=== PATIENT | male | born 1975 | race Caucasian/White ===

== ENCOUNTER 2019-03-09 00:13 | Observation (INO) ==
[2019-03-09] MEDS ORDERED: 0.9 % Sodium Chloride 1,000 ML IVC ONE (00:34)
--- NOTE | 2019-03-09 00:35 | Emergency Department Note ---
Disposition Clinical Impression: Suicidal ideation Alcohol intoxication Qualifiers: Complication of substance-induced condition: uncomplicated Qualified Code(s): F10.920 - Alcohol use, unspecified with intoxication, uncomplicated Depression Qualifiers: Depression Type: unspecified Qualified Code(s): F32.9 - Major depressive disorder, single episode, unspecified Disposition: Admitted As Inpatient Condition: Good Forms: ED Satisfaction Letter Time of Disposition: 02:40 Psych HPI - General Chief Complaint: ED Psychiatric Symptoms Stated Complaint: SI, ETOH Time Seen by Provider: 03/09/19 00:21 Source: family Nursing Notes Reviewed: Yes Vital Signs Reviewed: Yes - History of Present Illness HPI Narrative: 43-year-old male with reported psychiatric history and alcohol abuse arrives by private vehicle accompanied by his brother with complaint of suicidal ideation. Patient states that "he will be here tomorrow". Brother mentions that it was patient's eye for him to come to the hospital. Patient states that he needs to be in a "mental cardenas". Patient Brother mention a history of mental illness and patient has been and one in the past. Patient states that he has not been taking his psychiatric medications since he lost his medical card. Patient does describe himself as a daily beer drinker. He denies any injury or trauma, HI, hallucinations, recent illness. - Related Data Home Medications Medication Instructions Recorded Confirmed Paroxetine [Paxil] 30 mg PO DAILY 07/18/17 07/18/17 Previous Rx's Medication Instructions Recorded Chlordiazepoxide [Librium] 10 mg PO TITR #9 capsule 04/25/16 Meloxicam 7.5 mg PO DAILY #10 tablet 07/18/17 predniSONE [PredniSONE] 40 mg PO DAILY #10 tablet 07/18/17 Allergies Allergy/AdvReac Type Severity Reaction Status Date / Time Amoxicillin Allergy Rash Verified 11/28/16 21:54 All systems ED: reviewed and negative except as stated. Review of Systems: As Per HPI Constitutional: Denies: fever ENT ED: Denies: throat pain Cardiovascular: Denies: chest pain Respiratory: Denies: dyspnea Gastrointestinal: Denies: abdominal pain, nausea, vomiting Musculoskeletal: Denies: back pain, arthralgia Integumentary: Denies: rash Neurological: Denies: weakness Psychiatric: Reports: as per HPI Hematological/Lymphatic: Denies: lymphadenopathy Allergic/Immunologic: Denies: facial swelling Past Medical History - Past Medical History Medical history: Reports: no medical history Surgical history: Reports: no surgical history Psychiatric history: Reports: anxiety, depression, PTSD - Social History Smoking Status: Current some day smoker Smokeless Tobacco Status: Yes Alcohol use: Reports: heavy, recent Drug use: Reports: none Physical Exam - General Limitations: no limitations General appearance: alert, appears intoxicated - Head Head exam: atraumatic, normocephalic - Eye Eye exam: Present: normal appearance, EOMI - ENT ENT exam: mucous membranes moist - Neck Neck exam: Present: full ROM - Chest Chest inspection: Present: symmetric chest wall rise - Respiratory Respiratory exam: Present: normal lung sounds bilaterally. Absent: respiratory distress, wheezes, stridor - Cardiovascular Cardiovascular exam: Present: regular rate, tachycardia - Extremities Exam Extremities exam: Present: full ROM - Back Exam Back exam: Present: full ROM - Neurological Exam Neurological exam: Present: alert - Psychiatric Psychiatric exam: Present: normal affect, depressed, suicidal ideation. Absent: homicidal ideation - Expanded Psychiatric Exam Expanded psych exam: Absent: auditory hallucinations, visual hallucinations - Skin Skin exam: Present: warm, dry, intact, normal color. Absent: rash, cyanosis, diaphoresis Course Course Narrative: 43-year-old male known history of depression and alcohol abuse presents with complaint of suicidal ideation, and apparent intoxication. Patient seen and examined. he is alert and cooperative answers questions appropriately. He does voice a plan to shoot himself in the head. He does describe himself as a daily drinker. His last drink was just prior to arrival. When asked, he does mention that he goes through withdrawals when not drinking however he states his last day when he did not drink was "11 years old". We will attempt to medically clear him for psychiatric evaluation, however I anticipate patient may need to be admitted to the hospitalist for evaluation due to intoxication before psychiatric evaluation.. We will have patient pink slipped. Workup initiated. - Reevaluation(s) Reevaluation #1: Patient's blood work unremarkable at his baseline. His blood alcohol concentration is 353. His vitals remain stable. He is resting comfortably in his exam room. Patient has endorsed suicidal ideation and is noncompliant with his psychiatric medications. I feel he would benefit from a psychiatric eval uation and social work consult. Patient does have history of daily alcohol use, with possible withdrawal symptoms. We will plan for admission for monitoring and eventual psychiatric evaluation. Patient was discussed with attending Dr. Maynard who also had face time with patient and agreed with workup and disposition. Patient was discussed with hospitalist Dr. Olivarez who agreed to accept patient. Time: 02:32 Vital Signs Temperature 97.7 F 03/09/19 00:23 Pulse Rate 122 03/09/19 00:23 Respiratory Rate 16 03/09/19 00:23 Blood Pressure 160/115 03/09/19 00:23 O2 Sat by Pulse Oximetry 95 03/09/19 00:23 Temperature 97.6 F 03/09/19 02:28 Pulse Rate 86 03/09/19 02:28 Respiratory Rate 16 03/09/19 02:28 Blood Pressure 121/81 03/09/19 02:28 O2 Sat by Pulse Oximetry 95 03/09/19 02:28 Oxygen Delivery Oxygen Delivery Room Air Psych - MDM Narrative Medical decision making narrative: Laboratory Tests 03/09/19 03/09/19 03/09/19 00:34 00:34 00:48 WBC 7.3 RBC 5.20 Hgb 17.1 H Hct 49.3 MCV 94.8 MCH 32.9 MCHC 34.7 RDW 12.6 Plt Count 285 MPV 9.5 Immature Gran % 0.3 Seg Neutrophils % 35.8 Lymphocytes % 49.5 Monocytes % 8.2 Eosinophils % 5.5 Basophils % 0.7 Neutrophils # 2.6 Lymphocytes # 3.6 Monocytes # 0.6 Eosinophils # 0.4 Basophils # 0.1 Sodium 141 Potassium 4.1 Chloride 101 Carbon Dioxide 28 BUN 6 Creatinine 0.95 Est GFR ( Amer) > 60 Est GFR (Non-Af Amer) > 60 BUN/Creatinine Ratio 6 Glucose 113 H Calculated Osmolality 290 Calcium 9.0 Urine Color Yellow Urine Clarity Clear Urine pH 6.0 Ur Specific [place] 1.009 L Urine Protein Negative Urine Glucose (UA) Normal Urine Ketones Negative Urine Blood Negative Urine Nitrite Negative Urine Bilirubin Negative Urine Urobilinogen Normal Ur Leukocyte Esterase Negative Salicylates < 2.5 L Urine Opiates Screen Ur Buprenorphine Scrn Acetaminophen < 10 L Ur Barbiturates Screen Ur Phencyclidine Scrn Ur Amphetamines Screen U Benzodiazepines Scrn Urine Cocaine Screen U Marijuana (THC) Screen Ur Drug Screen Interp Ethyl Alcohol 353 H 03/09/19 00:48 WBC RBC Hgb Hct MCV MCH MCHC RDW Plt Count MPV Immature Gran % Seg Neutrophils % Lymphocytes % Monocytes % Eosinophils % Basophils % Neutrophils # Lymphocytes # Monocytes # Eosinophils # Basophils # Sodium Potassium Chloride Carbon Dioxide BUN Creatinine Est GFR ( Amer) Est GFR (Non-Af Amer) BUN/Creatinine Ratio Glucose Calculated Osmolality Calcium Urine Color Urine Clarity Urine pH Ur Specific [place] Urine Protein Urine Glucose (UA) Urine Ketones Urine Blood Urine Nitrite Urine Bilirubin Urine Urobilinogen Ur Leukocyte Esterase Salicylates Urine Opiates Screen Negative Ur Buprenorphine Scrn Negative Acetaminophen Ur Barbiturates Screen Negative Ur Phencyclidine Scrn Negative Ur Amphetamines Screen Negative U Benzodiazepines Scrn Negative Urine Cocaine Screen Negative U Marijuana (THC) Screen Negative Ur Drug Screen Interp See Below Ethyl Alcohol - Lab Data Result diagrams: 03/09/19 00:34 03/09/19 00:34 Lab Results 03/09/19 03/09/19 03/09/19 Range/Units 00:34 00:34 00:48 WBC 7.3 (4.3-11.1) K/mcL RBC 5.20 (4.19-5.50) M/mcL Hgb 17.1 H (12.9-16.9) g/dL Hct 49.3 (37.5-50.1) % MCV 94.8 (83.0-100.0) fL MCH 32.9 (28.0-33.3) pg MCHC 34.7 (31.6-35.5) g/dL RDW 12.6 (11.5-14.5) % Plt Count 285 (140-400) K/mcL MPV 9.5 (9.4-12.4) fL Immature Gran % 0.3 (0-4) % Seg Neutrophils % 35.8 % Lymphocytes % 49.5 % Monocytes % 8.2 % Eosinophils % 5.5 % Basophils % 0.7 % Neutrophils # 2.6 (1.6-8.9) K/mcL Lymphocytes # 3.6 (0.6-4.6) K/mcL Monocytes # 0.6 (0.0-1.3) K/mcL Eosinophils # 0.4 (0.0-0.6) K/mcL Basophils # 0.1 (0.0-0.2) K/mcL Sodium 141 (136-145) mEq/L Potassium 4.1 (3.5-5.1) mEq/L Chloride 101 (98-107) mEq/L Carbon Dioxide 28 (23-29) mEq/L BUN 6 (6-20) mg/dL Creatinine 0.95 (0.70-1.30) mg/dL Est GFR ( Amer) > 60 (> 60) Est GFR (Non-Af Amer) > 60 (> 60) BUN/Creatinine Ratio 6 (6-26) Glucose 113 H (70-105) mg/dL Calculated Osmolality 290 (280-300) Calcium 9.0 (8.6-10.3) mg/dL Urine Color Yellow (Yellow) Urine Clarity Clear (Clear) Urine pH 6.0 (5.0-8.0) pH Units Ur Specific [place] 1.009 L (1.010-1.025) Urine Protein Negative (Neg-Trace) mg/dL Urine Glucose (UA) Normal (Normal) mg/dL Urine Ketones Negative (Negative) mg/dL Urine Blood Negative (Negative) Urine Nitrite Negative (Negative) Urine Bilirubin Negative (Negative) Urine Urobilinogen Normal (Normal) mg/dL Ur Leukocyte Esterase Negative (Negative) Salicylates < 2.5 L (15.0-30.0) mg/dL Urine Opiates Screen (Ffortt=092) ng/mL Ur Buprenorphine Scrn (Cutoff=5) ng/mL Acetaminophen < 10 L (10-20) mcg/mL Ur Barbiturates Screen (Rhveil=647) ng/mL Ur Phencyclidine Scrn (Cutoff=25) ng/mL Ur Amphetamines Screen (Gcwcnr=7343) ng/mL U Benzodiazepines Scrn (Jolwvq=436) ng/mL Urine Cocaine Screen (Cutoff= 300) ng/mL U Marijuana (THC) Screen (Cutoff = 50) ng/mL Ur Drug Screen Interp Ethyl Alcohol 353 H (Less than 10) mg/dL 03/09/19 Range/Units 00:48 WBC (4.3-11.1) K/mcL RBC (4.19-5.50) M/mcL Hgb (12.9-16.9) g/dL Hct (37.5-50.1) % MCV (83.0-100.0) fL MCH (28.0-33.3) pg MCHC (31.6-35.5) g/dL RDW (11.5-14.5) % Plt Count (140-400) K/mcL MPV (9.4-12.4) fL Immature Gran % (0-4) % Seg Neutrophils % % Lymphocytes % % Monocytes % % Eosinophils % % Basophils % % Neutrophils # (1.6-8.9) K/mcL Lymphocytes # (0.6-4.6) K/mcL Monocytes # (0.0-1.3) K/mcL Eosinophils # (0.0-0.6) K/mcL Basophils # (0.0-0.2) K/mcL Sodium (136-145) mEq/L Potassium (3.5-5.1) mEq/L Chloride (98-107) mEq/L Carbon Dioxide (23-29) mEq/L BUN (6-20) mg/dL Creatinine (0.70-1.30) mg/dL Est GFR ( Amer) (> 60) Est GFR (Non-Af Amer) (> 60) BUN/Creatinine Ratio (6-26) Glucose (70-105) mg/dL Calculated Osmolality (280-300) Calcium (8.6-10.3) mg/dL Urine Color (Yellow) Urine Clarity (Clear) Urine pH (5.0-8.0) pH Units Ur Specific [place] (1.010-1.025) Urine Protein (Neg-Trace) mg/dL Urine Glucose (UA) (Normal) mg/dL Urine Ketones (Negative) mg/dL Urine Blood (Negative) Urine Nitrite (Negative) Urine Bilirubin (Negative) Urine Urobilinogen (Normal) mg/dL Ur Leukocyte Esterase (Negative) Salicylates (15.0-30.0) mg/dL Urine Opiates Screen Negative (Eyioys=361) ng/mL Ur Buprenorphine Scrn Negative (Cutoff=5) ng/mL Acetaminophen (10-20) mcg/mL Ur Barbiturates Screen Negative (Horxfc=218) ng/mL Ur Phencyclidine Scrn Negative (Cutoff=25) ng/mL Ur Amphetamines Screen Negative (Hlzmss=4952) ng/mL U Benzodiazepines Scrn Negative (Tgmfjq=745) ng/mL Urine Cocaine Screen Negative (Cutoff= 300) ng/mL U Marijuana (THC) Screen Negative (Cutoff = 50) ng/mL Ur Drug Screen Interp See Below Ethyl Alcohol (Less than 10) mg/dL Psychiatric Medical Clearance - Medical Clearance Checklist Medical History: No Social History Section defined Current Vitals: Last Vital Signs Temp 97.6 F 03/09/19 02:28 Pulse 86 03/09/19 02:28 Resp 16 03/09/19 02:28 BP 121/81 03/09/19 02:28 Pulse Ox 95 03/09/19 02:28 Psychiatric Lab Panel: Drug Levels and Toxicity 03/09/19 03/09/19 00:34 00:48 Urine Opiates Screen Negative Acetaminophen < 10 L Ur Barbiturates Screen Negative Ur Phencyclidine Scrn Negative Ur Amphetamines Screen Negative U Benzodiazepines Scrn Negative Urine Cocaine Screen Negative U Marijuana (THC) Screen Negative Ethyl Alcohol 353 H Abnormal Labs: Abnormal lab results Hgb 17.1 g/dL (12.9-16.9) H 03/09/19 00:34 Glucose 113 mg/dL (70-105) H 03/09/19 00:34 Ur Specific [place] 1.009 (1.010-1.025) L 03/09/19 00:48 Salicylates < 2.5 mg/dL (15.0-30.0) L 03/09/19 00:34 Acetaminophen < 10 mcg/mL (10-20) L 03/09/19 00:34 Ethyl Alcohol 353 mg/dL (Less than 10) H 03/09/19 00:34 Statement of Medical Clearance: I have evaluated the patient, reviewed diagnostic information, and certify that the patient's medical condition is sufficiently stable that transfer to the psychiatric unit does not pose a significant risk of deterioration.
[2019-03-09 01:00] LABS: Bilirubin,Urine Negative (Negative); Blood,Urine Negative (Negative); Clarity,Urine Clear (Clear); Color,Urine Yellow (Yellow); Glucose,Urine (UA) Normal (Normal); Ketones,Urine Negative (Negative); Leukocyte Esterase,Urine Negative (Negative); Nitrite,Urine Negative (Negative); Protein,Urine Negative (Neg-Trace); Specific Gravity,Urine 1.009 (1.010-1.025); Urobilinogen,Urine Normal (Normal)
[2019-03-09 01:04] LABS: Basophils # 0.1 K/mcL (0.0-0.2); Basophils % 0.7 %; Eosinophils # 0.4 K/mcL (0.0-0.6); Eosinophils % 5.5 %; Hematocrit 49.3 % (37.5-50.1); Hemoglobin 17.1 g/dL (12.9-16.9); Immature Granulocytes % 0.3 % (0-4); Lymphocytes # 3.6 K/mcL (0.6-4.6); Lymphocytes % 49.5 %; Mean Corpuscular HGB Conc 34.7 g/dL (31.6-35.5); Mean Corpuscular Hemoglobin 32.9 pg (28.0-33.3); Mean Corpuscular Volume 94.8 fL (83.0-100.0); Mean Platelet Volume 9.5 fL (9.4-12.4); Monocytes # 0.6 K/mcL (0.0-1.3); Monocytes % 8.2 %; Neutrophils # 2.6 K/mcL (1.6-8.9); Platelet Count 285 K/mcL (140-400); Red Cell Distribution Width 12.6 % (11.5-14.5); Segmented Neutrophils % 35.8 %; White Blood Count 7.3 K/mcL (4.3-11.1)
[2019-03-09 01:10] LABS: Amphetamine Screen,Urine Negative ng/mL (Cutoff=1000); Barbiturate Screen,Urine Negative ng/mL (Cutoff=200); Benzodiazepines Screen,Urine Negative ng/mL (Cutoff=200); Cannabinoid Screen,Urine Negative ng/mL (Cutoff = 50); Cocaine Screen,Urine Negative ng/mL (Cutoff= 300); Opiate Screen,Urine Negative ng/mL (Cutoff=300); Phencyclidine Screen,Urine Negative ng/mL (Cutoff=25)
[2019-03-09] MEDS: Nicotine 14 MG PATCH.TD24 TD SCH (01:19)
[2019-03-09 01:25] LABS: Acetaminophen < 10 mcg/mL (10-20); BUN/Creatinine Ratio 6 (6-26); Blood Urea Nitrogen 6 mg/dL (6-20); Carbon Dioxide 28 mEq/L (23-29); Chloride 101 mEq/L (98-107); Ethanol 353 mg/dL (Less than 10); Glucose 113 mg/dL (70-105); Osmolality,Calculated 290 (280-300); Potassium 4.1 mEq/L (3.5-5.1); Salicylate < 2.5 mg/dL (15.0-30.0); Sodium 141 mEq/L (136-145); eGFR For African Americans > 60 (> 60); eGFR For Non-African Americans > 60 (> 60)
--- NOTE | 2019-03-09 02:35 | Emergency Department Note ---
Disposition Clinical Impression: Suicidal ideation Alcohol intoxication Qualifiers: Complication of substance-induced condition: uncomplicated Qualified Code(s): F10.920 - Alcohol use, unspecified with intoxication, uncomplicated Disposition: Admitted As Inpatient Condition: Fair Referrals: NONE,PCP [Primary Care Provider] - Forms: ED Satisfaction Letter Time of Disposition: 02:36 General Adult HPI - General Chief complaint: ED Psychiatric Symptoms Stated complaint: SI, ETOH Time Seen by Provider: 03/09/19 00:21 Source: family Nursing Notes Reviewed: Yes Vital Signs Reviewed: Yes - History of Present Illness Pain Scale: 0 - Related Data Home Medications Medication Instructions Recorded Confirmed Paroxetine [Paxil] 30 mg PO DAILY 07/18/17 07/18/17 Previous Rx's Medication Instructions Recorded Chlordiazepoxide [Librium] 10 mg PO TITR #9 capsule 04/25/16 Meloxicam 7.5 mg PO DAILY #10 tablet 07/18/17 predniSONE [PredniSONE] 40 mg PO DAILY #10 tablet 07/18/17 Allergies Allergy/AdvReac Type Severity Reaction Status Date / Time Amoxicillin Allergy Rash Verified 11/28/16 21:54 Past Medical History - Past Medical History Medical history: Reports: no medical history Surgical history: Reports: no surgical history Psychiatric history: Reports: anxiety, depression, PTSD - Social History Smoking Status: Current some day smoker Smokeless Tobacco Status: Yes Alcohol use: Reports: heavy, recent Drug use: Reports: none Physical Exam - General General appearance: alert, appears intoxicated Course Vital Signs Temperature 97.7 F 03/09/19 00:23 Pulse Rate 122 03/09/19 00:23 Respiratory Rate 16 03/09/19 00:23 Blood Pressure 160/115 03/09/19 00:23 O2 Sat by Pulse Oximetry 95 03/09/19 00:23 Temperature 97.6 F 03/09/19 02:28 Pulse Rate 86 03/09/19 02:28 Respiratory Rate 16 03/09/19 02:28 Blood Pressure 121/81 03/09/19 02:28 O2 Sat by Pulse Oximetry 95 03/09/19 02:28 Oxygen Delivery Oxygen Delivery Room Air Medical Decision Making - Lab Data Lab results reviewed: Yes I reviewed the patient's lab results. Result diagrams: 03/09/19 00:34 03/09/19 00:34 Lab Results 09/16/19 09/16/19 09/16/19 Range/Units 00:34 00:34 00:48 WBC 7.3 (4.3-11.1) K/mcL RBC 5.20 (4.19-5.50) M/mcL Hgb 17.1 H (12.9-16.9) g/dL Hct 49.3 (37.5-50.1) % MCV 94.8 (83.0-100.0) fL MCH 32.9 (28.0-33.3) pg MCHC 34.7 (31.6-35.5) g/dL RDW 12.6 (11.5-14.5) % Plt Count 285 (140-400) K/mcL MPV 9.5 (9.4-12.4) fL Immature Gran % 0.3 (0-4) % Seg Neutrophils % 35.8 % Lymphocytes % 49.5 % Monocytes % 8.2 % Eosinophils % 5.5 % Basophils % 0.7 % Neutrophils # 2.6 (1.6-8.9) K/mcL Lymphocytes # 3.6 (0.6-4.6) K/mcL Monocytes # 0.6 (0.0-1.3) K/mcL Eosinophils # 0.4 (0.0-0.6) K/mcL Basophils # 0.1 (0.0-0.2) K/mcL Sodium 141 (136-145) mEq/L Potassium 4.1 (3.5-5.1) mEq/L Chloride 101 (98-107) mEq/L Carbon Dioxide 28 (23-29) mEq/L BUN 6 (6-20) mg/dL Creatinine 0.95 (0.70-1.30) mg/dL Est GFR ( Amer) > 60 (> 60) Est GFR (Non-Af Amer) > 60 (> 60) BUN/Creatinine Ratio 6 (6-26) Glucose 113 H (70-105) mg/dL Calculated Osmolality 290 (280-300) Calcium 9.0 (8.6-10.3) mg/dL Urine Color Yellow (Yellow) Urine Clarity Clear (Clear) Urine pH 6.0 (5.0-8.0) pH Units Ur Specific [place] 1.009 L (1.010-1.025) Urine Protein Negative (Neg-Trace) mg/dL Urine Glucose (UA) Normal (Normal) mg/dL Urine Ketones Negative (Negative) mg/dL Urine Blood Negative (Negative) Urine Nitrite Negative (Negative) Urine Bilirubin Negative (Negative) Urine Urobilinogen Normal (Normal) mg/dL Ur Leukocyte Esterase Negative (Negative) Salicylates < 2.5 L (15.0-30.0) mg/dL Urine Opiates Screen (Vhoesm=735) ng/mL Ur Buprenorphine Scrn (Cutoff=5) ng/mL Acetaminophen < 10 L (10-20) mcg/mL Ur Barbiturates Screen (Ejgkee=957) ng/mL Ur Phencyclidine Scrn (Cutoff=25) ng/mL Ur Amphetamines Screen (Oceclp=0219) ng/mL U Benzodiazepines Scrn (Ldbhgh=162) ng/mL Urine Cocaine Screen (Cutoff= 300) ng/mL U Marijuana (THC) Screen (Cutoff = 50) ng/mL Ur Drug Screen Interp Ethyl Alcohol 353 H (Less than 10) mg/dL 03/09/19 Range/Units 00:48 WBC (4.3-11.1) K/mcL RBC (4.19-5.50) M/mcL Hgb (12.9-16.9) g/dL Hct (37.5-50.1) % MCV (83.0-100.0) fL MCH (28.0-33.3) pg MCHC (31.6-35.5) g/dL RDW (11.5-14.5) % Plt Count (140-400) K/mcL MPV (9.4-12.4) fL Immature Gran % (0-4) % Seg Neutrophils % % Lymphocytes % % Monocytes % % Eosinophils % % Basophils % % Neutrophils # (1.6-8.9) K/mcL Lymphocytes # (0.6-4.6) K/mcL Monocytes # (0.0-1.3) K/mcL Eosinophils # (0.0-0.6) K/mcL Basophils # (0.0-0.2) K/mcL Sodium (136-145) mEq/L Potassium (3.5-5.1) mEq/L Chloride (98-107) mEq/L Carbon Dioxide (23-29) mEq/L BUN (6-20) mg/dL Creatinine (0.70-1.30) mg/dL Est GFR ( Amer) (> 60) Est GFR (Non-Af Amer) (> 60) BUN/Creatinine Ratio (6-26) Glucose (70-105) mg/dL Calculated Osmolality (280-300) Calcium (8.6-10.3) mg/dL Urine Color (Yellow) Urine Clarity (Clear) Urine pH (5.0-8.0) pH Units Ur Specific [place] (1.010-1.025) Urine Protein (Neg-Trace) mg/dL Urine Glucose (UA) (Normal) mg/dL Urine Ketones (Negative) mg/dL Urine Blood (Negative) Urine Nitrite (Negative) Urine Bilirubin (Negative) Urine Urobilinogen (Normal) mg/dL Ur Leukocyte Esterase (Negative) Salicylates (15.0-30.0) mg/dL Urine Opiates Screen Negative (Dzqcbh=249) ng/mL Ur Buprenorphine Scrn Negative (Cutoff=5) ng/mL Acetaminophen (10-20) mcg/mL Ur Barbiturates Screen Negative (Niuvdb=410) ng/mL Ur Phencyclidine Scrn Negative (Cutoff=25) ng/mL Ur Amphetamines Screen Negative (Fyzlto=6615) ng/mL U Benzodiazepines Scrn Negative (Vmnnil=027) ng/mL Urine Cocaine Screen Negative (Cutoff= 300) ng/mL U Marijuana (THC) Screen Negative (Cutoff = 50) ng/mL Ur Drug Screen Interp See Below Ethyl Alcohol (Less than 10) mg/dL Attestation Statement - Attestation Attestation: I, Cruzito Maynard MD, personally evaluated this patient and discussed their management with the midlevel provicer, PAC/HOSPICE SPIRITUAL CARE COORDINATOR. I reviewed the midlevel provider's note and agree with the documented findings, medical decision making, and plan of care. 43-year-old male with history of alcoholism presents to the emergency department for suicidal ideation. Patient very intoxicated on arrival. On examination patient is a well-developed well-nourished male in no acute distress. Normal motor of alcohol. He responds to verbal stimuli. No cyanosis or diaphoresis. Breath sounds are clear and equal bilaterally. Heart regular with a mild tachycardia. Abdomen soft and nontender with normal bowel sounds. Labs reviewed. Alcohol 353. The hospitalist, Dr. Olivarez, was consulted and accepted admission of the patient.
[2019-03-09] MEDS ORDERED: *HR* Promethazine 25 MG/ML VIAL IVP PRN (04:14)
[2019-03-09] MEDS ORDERED: *HR* LORazepam 2 MG/ML VIAL IVP PRN ×2 (04:14)
--- NOTE | 2019-03-09 05:01 | Internal Med History&Physical ---
Date of Encounter: 03/09/19 Time of Encounter: 05:00 Internal Medicine - H&P: HPI Chief complaint: SI Admitted From: Home Plans for Post Hospital Care: Home History of present illness: Yordan Chaves is a 43 year old man who is an active alcoholic and reports having mood disorders who was brought to the emergency room tonight by his brother as he reported having suicidal ideation. He says he has been d rinking on a daily basis more than 30 cans of beer and his last use was before coming to the ER. He says he has been feeling depressed because of his life and is unhappy with himself so he expressed desires to harm himself. When I asked him what method he says he is unsure but he owns a gun and could use that. On arrival to the ER he was seen to be hemodynamically stable but notably intoxicated. Alcohol level was 353. Rest of labs were grossly within normal limits. He denies any hallucinations but does admit to undergoing severe withdrawal episodes. Vitals: Reviewed General: Well-developed white man lying in bed in NAD Skin: Warm and flushed. HEENT: Moist mucous membranes. No conjunctivae pallor. Neck: No lymphadenopathy. No JVD. No carotid bruits. No palpable thyroid. Chest: Normal thoracic expansion. Normal breath sounds. Clear to auscultation. Heart: Normal S1 & S2; rhythmic. No rubs or murmurs. Abdomen: Non-distended, soft and non-tender to palpation. No peritoneal reaction. Extremities: No clubbing, cyanosis or edema. No calf tenderness. Normal distal pulses. Neurological: Somnolent but arousable. Oriented to person, place and time. No focal deficits. Psych: Affect appropriate. Assessment/Plan 1. Alcohol intoxication: Currently stable but at risk of developing a severe withdrawal state. Will place on CIWA protocol. Aspiration/fall precautions. Put on standing chlorodiazepoxide for today to help attenuate his symptoms. Lorazepam as needed. Oral folate/thiamine. IV LR started. 2. Suicidal ideation: Likely complicated by his intoxicated state although he has an underlying mood disorder that predisposes him to this. He will have a sitter and psychiatric consultation placed. 3. Mood disorder: Not currently on any medications. Further assessment per psychiatry. 4. DVT prophylaxis: Antiembolic stockings. Past Med Surg Social Fam HX - Past Medical History Medical history: no medical history Additional medical history: ETOH abuse Psychiatric history: anxiety, depression, PTSD - Past Surgical History Surgical History: no surgical history Additional surgical history: throat surgery - Social History Smoking Status: Current some day smoker Smokeless Tobacco Status: Yes Alcohol use: heavy, recent Drug use: none - Family History Mother Hx Family Endocrine Disorder: Yes Internal Medicine - H&P: Meds No Known Home Drugs 03/09/19 [History] Allergy/AdvReac Type Severity Reaction Status Date / Time Amoxicillin Allergy Rash Verified 03/09/19 03:40 Penicillins Allergy Rash Verified 03/09/19 03:40 All Systems PM: A 10-system review of systems was performed and is negative for pertinent fin dings except as documented above in the HPI. - Constitutional Vitals: Temp Pulse Resp BP Pulse Ox 97.6 F 86 16 121/81 95 03/09/19 02:28 03/09/19 02:28 03/09/19 02:28 03/09/19 02:28 03/09/19 02:28 Exam: . Internal Med - H&P Results - Labs CBC & Chem 7: 03/09/19 00:34 03/09/19 00:34 Labs: Short CBC 03/09/19 Range/Units 00:34 WBC 7.3 (4.3-11.1) K/mcL Hgb 17.1 H (12.9-16.9) g/dL Hct 49.3 (37.5-50.1) % Plt Count 285 (140-400) K/mcL Neutrophils # 2.6 (1.6-8.9) K/mcL BMP 03/09/19 00:34 Sodium 141 Potassium 4.1 Chloride 101 Carbon Dioxide 28 BUN 6 Creatinine 0.95 Glucose 113 H Calcium 9.0 Urine 03/09/19 Range/Units 00:48 Urine Color Yellow (Yellow) Urine Clarity Clear (Clear) Urine pH 6.0 (5.0-8.0) pH Units Ur Specific [place] 1.009 L (1.010-1.025) Urine Protein Negative (Neg-Trace) mg/dL Urine Glucose (UA) Normal (Normal) mg/dL - Time Spent With Patient Total time spent is greater than 50% in coordination of care (as documented) at patient's floor/unit and/or counseling patient:
[2019-03-09] MEDS: Ringers Solution, Lactated 1,000 ML IVC SCH ×2 (05:19→13:13)
--- NOTE | 2019-03-09 08:17 | Consult Note ---
Date of Encounter: 03/09/19 Time of Encounter: 08:17 Assessment & Recommendation (1) Depression Current visit: Yes Status: Acute Assessment & Recommendation: Patient endorses a history of depression, which has worsened over the last several months. He endorses active suicidal ideation, and states that he came to the hospital because if he didn't, "something bad is going to happen". Recommendations: - Resume home medication of paxil at lower dose of 20mg. - Recommend admission to 1A once medically cleared. - Continue sitter and suicide precautions per primary team and unit protocol. Qualifiers: Depression Type: unspecified Qualified Code(s): F32.9 - Major depressive disorder, single episode, unspecified (2) Alcohol use disorder Current visit: Yes Status: Acute Assessment & Recommendation: - Continue management for acute alcohol withdrawal per [facility] protocol and primary team direction. History of Present Illness Requesting Physician: Karolina Josue MD Reason for consult: SI, EtOH abuse History of present illness: Mr. Chaves is a 43 year old male with a history of anxiety, depression, PTSD, and alcohol abuse who presented to the ED endorsing suicidal ideation. He endorsed having a plan to shoot himself, and though he does not own a gun, stated that he could easily obtain one. In the ED, patient was noted to have an elevated alcohol level, and reported drinking multiple beers on a daily basis. When asked how many, patient states "more than most people would be able to handle". He denies any use of illicit substances. Patient did endorse a history of alcohol withdrawal symptoms, and was subsequently admitted to the medical floor for management of that problem. On evaluation this morning, patient endorsed a history of depression, anxiety, and PTSD, with previous admission to 1A a few years ago (April 2016). He reports that medications have been of limited use in the past; however, he notes that a prior physician, Dr. Joseph, had him on medication therapy that helped greatly, and reports that he was able to stay sober for several weeks. On review of [facility] documentation, it appears that patient was prescribed paxil 10mg and valium 10mg Q8H PRN by that provider. Patient was most recently seen in the residency clinic in July of this year, where he was seen by myself; at that time, he reported taking paxil 40mg and hydroxyzine 25mg Q6H PRN with good effect. He reports that he has not taken medication in several months, as he lost his medical insurance, though he has recently had his insurance problems addressed. He endorses anhedonia and difficulty motivating himself to leave his home. He denies overt homicidal ideation; however, he states that when he gets mad, he wants to hurt someone, which is why he stays home and drinks, otherwise he is concerned that "something bad will happen", which also prompted him to come to the hospital. He states that he is no longer able to deal with these problems on his own and states that he wants help. He denies any visual or auditory hallucinations. CC: Karolina Josue MD Past Med Surg Social Fam HX - Past Medical History Medical history: no medical history - Past Psychiatric History Psychiatric history: Reports: anxiety, depression, PTSD, previous psychiatric hospitalization - Past Surgical History Surgical History: no surgical history - Social History Smoking Status: Current some day smoker Smokeless Tobacco Status: Yes Alcohol use: heavy, recent Drug use: none - Family History Mother Hx Family Endocrine Disorder: Yes Medications & Allergies No Known Home Drugs 03/09/19 [History] Allergy/AdvReac Type Severity Reaction Status Date / Time Amoxicillin Allergy Rash Verified 03/09/19 03:40 Penicillins Allergy Rash Verified 03/09/19 03:40 Review of Systems Constitutional: Denies: fever, chills, weakness, weight change Cardiovascular: Denies: chest pain, palpitations, dyspnea on exertion Respiratory: Denies: cough, dyspnea, wheezes Gastrointestinal: Denies: abdominal pain, nausea, vomiting, diarrhea, constipation Musculoskeletal: Denies: joint swelling, joint pain Integumentary: Denies: rash, lesions, pruritus Neurological: Denies: headache, weakness, numbness, memory loss Psychiatric: Reports: depression, anxiety, suicidal ideation, homicidal ideation, anhedonia, hopelessness. Denies: auditory hallucinations, visual hallucinations Hematologic/Lymphatic: Denies: easy bruising, lymphadenopathy Allergic/Immunologic: Denies: urticaria, itchy eyes Psychiatry Exam - Constitutional Vitals: Temp Pulse Resp BP Pulse Ox 97.9 F 72 18 119/84 95 03/09/19 05:14 03/09/19 05:14 03/09/19 05:14 03/09/19 05:14 03/09/19 05:14 General appearance: age & developmentally appropriate - Musculoskeletal Strength & Tone: normal for patient (grossly normal on observation) - Psychiatric Patient Orientation: Yes Person, Yes Time, Yes Place Level of alertness: Alert, Follows commands Behavior: calm, cooperative Psychomotor activity: Normal Eye Contact: Maintains Eye Contact Mood Description: Depressed Affect description: congruent with mood, full range Speech Volume: Normal Speech pattern: normal rate, normal rhythm, normal tone, fluent, spontaneous, appropriate Language & Vocabulary: consistent with education Thought Process: Linear, Goal Oriented Thought Content: Yes Suicidal ideation, No Homicidal ideation, No Overt delusions Perceptual Disturbances: No Reacting to internal stimuli, No Auditory hallucinations, No Visual hallucinations Attention Span Ability: Capable of Focused Attention Memory Description: Grossly Intact Patient Reliability: Questionable Historian Intelligence Estimate: Average Results - Drug Levels and Toxicology Drug Levels and Toxicology: Drug Levels and Toxicity 03/09/19 03/09/19 00:34 00:48 Urine Opiates Screen Negative Acetaminophen < 10 L Ur Barbiturates Screen Negative Ur Phencyclidine Scrn Negative Ur Amphetamines Screen Negative U Benzodiazepines Scrn Negative Urine Cocaine Screen Negative U Marijuana (THC) Screen Negative Ethyl Alcohol 353 H - Labs Labs: Laboratory Last Values WBC 7.3 K/mcL (4.3-11.1) 03/09/19 00:34 RBC 5.20 M/mcL (4.19-5.50) 03/09/19 00:34 Hgb 17.1 g/dL (12.9-16.9) H 03/09/19 00:34 Hct 49.3 % (37.5-50.1) 03/09/19 00:34 MCV 94.8 fL (83.0-100.0) 03/09/19 00:34 MCH 32.9 pg (28.0-33.3) 03/09/19 00:34 MCHC 34.7 g/dL (31.6-35.5) 03/09/19 00:34 RDW 12.6 % (11.5-14.5) 03/09/19 00:34 Plt Count 285 K/mcL (140-400) 03/09/19 00:34 MPV 9.5 fL (9.4-12.4) 03/09/19 00:34 Immature Gran % 0.3 % (0-4) 03/09/19 00:34 Seg Neutrophils % 35.8 % 03/09/19 00:34 Lymphocytes % 49.5 % 03/09/19 00:34 Monocytes % 8.2 % 03/09/19 00:34 Eosinophils % 5.5 % 03/09/19 00:34 Basophils % 0.7 % 03/09/19 00:34 Neutrophils # 2.6 K/mcL (1.6-8.9) 03/09/19 00:34 Lymphocytes # 3.6 K/mcL (0.6-4.6) 03/09/19 00:34 Monocytes # 0.6 K/mcL (0.0-1.3) 03/09/19 00:34 Eosinophils # 0.4 K/mcL (0.0-0.6) 03/09/19 00:34 Basophils # 0.1 K/mcL (0.0-0.2) 03/09/19 00:34 Sodium 141 mEq/L (136-145) 03/09/19 00:34 Potassium 4.1 mEq/L (3.5-5.1) 03/09/19 00:34 Chloride 101 mEq/L (98-107) 03/09/19 00:34 Carbon Dioxide 28 mEq/L (23-29) 03/09/19 00:34 BUN 6 mg/dL (6-20) 03/09/19 00:34 Creatinine 0.95 mg/dL (0.70-1.30) 03/09/19 00:34 Est GFR ( Amer) > 60 (> 60) 03/09/19 00:34 Est GFR (Non-Af Amer) > 60 (> 60) 03/09/19 00:34 BUN/Creatinine Ratio 6 (6-26) 03/09/19 00:34 Glucose 113 mg/dL (70-105) H 03/09/19 00:34 Calculated Osmolality 290 (280-300) 03/09/19 00:34 Calcium 9.0 mg/dL (8.6-10.3) 03/09/19 00:34 Urine Color Yellow (Yellow) 03/09/19 00:48 Urine Clarity Clear (Clear) 03/09/19 00:48 Urine pH 6.0 pH Units (5.0-8.0) 03/09/19 00:48 Ur Specific [place] 1.009 (1.010-1.025) L 03/09/19 00:48 Urine Protein Negative mg/dL (Neg-Trace) 03/09/19 00:48 Urine Glucose (UA) Normal mg/dL (Normal) 03/09/19 00:48 Urine Ketones Negative mg/dL (Negative) 03/09/19 00:48 Urine Blood Negative (Negative) 03/09/19 00:48 Urine Nitrite Negative (Negative) 03/09/19 00:48 Urine Bilirubin Negative (Negative) 03/09/19 00:48 Urine Urobilinogen Normal mg/dL (Normal) 03/09/19 00:48 Ur Leukocyte Esterase Negative (Negative) 03/09/19 00:48 Salicylates < 2.5 mg/dL (15.0-30.0) L 03/09/19 00:34 Urine Opiates Screen Negative ng/mL (Uljwdj=316) 03/09/19 00:48 Ur Buprenorphine Scrn Negative ng/mL (Cutoff=5) 03/09/19 00:48 Acetaminophen < 10 mcg/mL (10-20) L 03/09/19 00:34 Ur Barbiturates Screen Negative ng/mL (Jqiybw=824) 03/09/19 00:48 Ur Phencyclidine Scrn Negative ng/mL (Cutoff=25) 03/09/19 00:48 Ur Amphetamines Screen Negative ng/mL (Bgnnvl=8745) 03/09/19 00:48 U Benzodiazepines Scrn Negative ng/mL (Xzivoi=541) 03/09/19 00:48 Urine Cocaine Screen Negative ng/mL (Cutoff= 300) 03/09/19 00:48 U Marijuana (THC) Screen Negative ng/mL (Cutoff = 50) 03/09/19 00:48 Ur Drug Screen Interp See Below 03/09/19 00:48 Ethyl Alcohol 353 mg/dL (Less than 10) H 03/09/19 00:34 Consult Discharge Plan - Plan Referrals: NONE,PCP [Primary Care Provider] - - Attending Attestation I examined this patient and my medical decision-making was reviewed with the Resident Physician. I agree with the documented findings, disposition and treatment plan as described except to the extent set forth below. Patient continues to endorse suicidal ideations. He continues to appear dysphoric and uninterested. As such we will recommend he come down to 1A once he is medically stable and has been safely detoxed from alcohol. In the meantime he can be restarted on his Paxil 20 mg by mouth every morning.
[2019-03-09] MEDS: Folic Acid 1 MG TABLET PO SCH (08:45)
[2019-03-09] MEDS: Vitamin B Complex/Vit C/Vit E 1 EACH TABLET PO SCH (08:45)
[2019-03-09] MEDS: Thiamine (B-1) 100 MG TABLET PO SCH (08:45)
[2019-03-09] MEDS: Acetaminophen 325 MG TABLET PO PRN ×2 (11:38→19:49)
--- NOTE | 2019-03-09 12:34 | Internal Med Progress Note ---
Hospitalist Progress Note - Encounter Date of Encounter: 03/09/19 Time of Encounter: 12:32 - Subjective Interval History: Patient seen and examined. No acute events overnight. Patient still notes that "if he doesnt get help, he will do something bad". Per nursing, patient has not scored on CIWA. - Exam Vitals: Temp Pulse Resp BP Pulse Ox 98.2 F 106 20 126/81 95 03/09/19 10:56 03/09/19 10:56 03/09/19 10:56 03/09/19 10:56 03/09/19 10:56 Exam: GENERAL APPEARANCE: Well developed, well nourished, alert and cooperative, and appears to be in no acute distress. HEENT: Normocephalic/atraumatic, PERRLA. NECK: Supple, nontender without lymphadenopathy. CARDIOVASCULAR: Normal S1, S2; regular rate and rhythm; no murmurs. RESPIRATORY: Clear to auscultation bilaterally; no rales, rhonchi or wheezing. ABDOMEN: Soft, nondistended, nontender; bowel sounds present. MUSKULOSKELETAL: No limitations in range of motion. EXTREMITIES: No edema, clubbing. NEUROLOGICAL: No focal neurological deficits. SKIN: Skin normal color, texture and turgor with no lesions or eruptions. PSYCHIATRIC: anxious appearing - Assessment and Plan (1) Suicidal ideation Current Visit: Yes Status: Acute Assessment and Plan: Patient brought in by brother for "thoughts of hurting self" Patient still endorsing suicidal thoughts Plan: Psych consulted: sitter; transfer to when medically stable (2) Alcohol intoxication Current Visit: Yes Status: Acute Assessment and Plan: On admission, patient was notably intoxicated with EtOH of 353 Patient has been drinking approximately 30 beers per day with last drink right before admission Plan: CIWA: patient is a heavy drinking with recent abrupt cessation and high risk for withdrawal Scheduled chlordiazepoxide taper PRN ativan oral folate and thiamine IVF (3) Depression Current Visit: Yes Status: Acute Assessment and Plan: Patient has had long history of depression, anxiety and PTSD; Previously on paxil but stopped after his medical insurance lapsed Plan: Psych consulted: started on paxil; transfer to 1A (4) DVT prophylaxis Current Visit: No Status: Acute Assessment and Plan: anti-embolic stockings - Time Spent with Patient Total time spent is greater than 50% in coordination of care (as documented) at patient's floor/unit and/or counseling patient: 35 minutes Plan of Care Discussed with: patient Internal Medicine: Result - Labs CBC & Chem 7: 03/09/19 00:34 03/09/19 00:34 Labs: Short CBC 03/09/19 Range/Units 00:34 WBC 7.3 (4.3-11.1) K/mcL Hgb 17.1 H (12.9-16.9) g/dL Hct 49.3 (37.5-50.1) % Plt Count 285 (140-400) K/mcL Neutrophils # 2.6 (1.6-8.9) K/mcL BMP 03/09/19 00:34 Sodium 141 Potassium 4.1 Chloride 101 Carbon Dioxide 28 BUN 6 Creatinine 0.95 Glucose 113 H Calcium 9.0 Urine 03/09/19 Range/Units 00:48 Urine Color Yellow (Yellow) Urine Clarity Clear (Clear) Urine pH 6.0 (5.0-8.0) pH Units Ur Specific [place] 1.009 L (1.010-1.025) Urine Protein Negative (Neg-Trace) mg/dL Urine Glucose (UA) Normal (Normal) mg/dL Consult Discharge Plan - Plan Referrals: NONE,PCP [Primary Care Provider] - ____ (2) Alcohol intoxication Qualifiers: Complication of substance-induced condition: uncomplicated Qualified Code(s): F10.920 - Alcohol use, unspecified with intoxication, uncomplicated (3) Depression Qualifiers: Depression Type: unspecified Qualified Code(s): F32.9 - Major depressive disorder, single episode, unspecified
[2019-03-10] MEDS: Nicotine 14 MG PATCH.TD24 TD SCH (03:45)
--- NOTE | 2019-03-10 08:31 | Psychiatry Progress Note ---
Date of Encounter: 03/10/19 Time of Encounter: 08:31 Subjective Interval history: Mr. Chaves was seen and evaluated at the bedside this morning. He reports improvement in his withdrawal symptoms, though he continues to endorse generalized anxiety. He denies active suicidal or homicidal ideation at the time of exam, and reports that he feels that his mood somewhat improved today. Nursing staff reports no significant overnight events. Review of Systems Psychiatric: Reports: depression, anxiety, anhedonia, hopelessness, irritability. Denies: suicidal ideation, homicidal ideation, auditory hallucinations, visual hallucinations Results - Vital Signs Vital Signs: Temp Pulse Resp BP Pulse Ox 97.9 F 65 16 142/93 96 03/10/19 06:53 03/10/19 06:53 03/10/19 06:53 03/10/19 06:53 03/10/19 06:53 Assessment and Plan (1) Depression Current visit: Yes Status: Acute Additional Plan: Assessment & Recommendation: Patient endorses a history of depression, which has worsened over the last several months. He denies any suicidal ideation today, and reports some improvement in his mood secondary to librium for alcohol withdrawal. However, he does report feeling very anxious in general. He denies any homicidal ideation or hallucinations this morning. Recommendations: - Restart paroxetine 20mg daily. - Recommend admission to 1A once medically cleared. - Continue sitter and suicide precautions per primary team and unit protocol. Qualifiers: Depression Type: unspecified Qualified Code(s): F32.9 - Major depressive disorder, single episode, unspecified (2) Alcohol use disorder Current visit: Yes Status: Acute Additional Plan: Continue management for acute alcohol withdrawal per primary team direction. Consult Discharge Plan - Plan Referrals: NONE,PCP [Primary Care Provider] - - Attending Attestation I examined this patient and my medical decision-making was reviewed with the Resident Physician. I agree with the documented findings, disposition and treatment plan as described except to the extent set forth below. Continue to recommend restarting his Paxil 20 mg by mouth every morning and bring him to 1A once medically stable. Psychiatry Exam - Constitutional Vitals: Temp Pulse Resp BP Pulse Ox 97.9 F 65 16 142/93 96 03/10/19 06:53 03/10/19 06:53 03/10/19 06:53 03/10/19 06:53 03/10/19 06:53 General appearance: age & developmentally appropriate - Musculoskeletal Strength & Tone: normal for patient - Psychiatric Patient Orientation: Yes Person, Yes Time, Yes Place Level of alertness: Alert Behavior: calm, cooperative, restless Psychomotor activity: Normal Eye Contact: Minimal Contact Mood Description: Anxious Affect description: congruent with mood Speech Volume: Normal Speech pattern: normal rate, normal rhythm, normal tone, fluent, spontaneous Language & Vocabulary: consistent with education Thought Process: Logical, Linear Thought Content: No Suicidal ideation, No Homicidal ideation, No Overt delusions Perceptual Disturbances: No Reacting to internal stimuli, No Auditory hallucinations, No Visual hallucinations Attention Span Ability: Capable of Sustained Attention Patient Reliability: Questionable Historian
[2019-03-10] MEDS: Vitamin B Complex/Vit C/Vit E 1 EACH TABLET PO SCH (09:21)
[2019-03-10] MEDS: Acetaminophen 325 MG TABLET PO PRN ×2 (09:21→20:29)
[2019-03-10] MEDS: Thiamine (B-1) 100 MG TABLET PO SCH (09:21)
[2019-03-10] MEDS: Folic Acid 1 MG TABLET PO SCH (09:22)
[2019-03-10] MEDS ORDERED: Nicotine 14 MG PATCH.TD24 TD ONE (10:30)
[2019-03-10] MEDS ORDERED: *HR* LORazepam 2 MG/ML VIAL IVP PRN (10:34)
--- NOTE | 2019-03-10 15:38 | Internal Med Progress Note ---
Hospitalist Progress Note - Encounter Date of Encounter: 03/10/19 Time of Encounter: 15:36 - Subjective Interval History: Patient seen and examined. Per nursing, not scoring on CIWA. Patient has no acute complaints. Still feeling very anxious. - Exam Vitals: Temp Pulse Resp BP Pulse Ox 97.6 F 70 15 148/94 96 03/10/19 11:38 03/10/19 11:38 03/10/19 11:38 03/10/19 11:38 03/10/19 11:38 Exam: GENERAL APPEARANCE: Well developed, well nourished, alert and cooperative, and appears to be in no acute distress. HEENT: Normocephalic/atraumatic, PERRLA. NECK: Supple, nontender without lymphadenopathy. CARDIOVASCULAR: Normal S1, S2; regular rate and rhythm; no murmurs. RESPIRATORY: Clear to auscultation bilaterally; no rales, rhonchi or wheezing. ABDOMEN: Soft, nondistended, nontender; bowel sounds present. MUSKULOSKELETAL: No limitations in range of motion. EXTREMITIES: No edema, clubbing. NEUROLOGICAL: No focal neurological deficits. SKIN: Skin normal color, texture and turgor with no lesions or eruptions. PSYCHIATRIC: anxious appearing - Assessment and Plan (1) Suicidal ideation Current Visit: Yes Status: Acute Assessment and Plan: Patient brought in by brother for "thoughts of hurting self" Patient still endorsing suicidal thoughts Plan: Psych consulted: sitter; transfer to when medically stable (2) Alcohol intoxication Current Visit: Yes Status: Acute Assessment and Plan: On admission, patient was notably intoxicated with EtOH of 353 Patient has been drinking approximately 30 beers per day with last drink right before admission So far not scoring on CIWA but still early given amount of drinking Plan: CIWA: patient is a heavy drinking with recent abrupt cessation and high risk for withdrawal Scheduled chlordiazepoxide taper PRN ativan oral folate and thiamine IVF (3) Depression Current Visit: Yes Status: Acute Assessment and Plan: Patient has had long history of depression, anxiety and PTSD; Previously on paxil but stopped after his medical insurance lapsed Plan: Psych consulted: started on paxil; transfer to 1A (4) DVT prophylaxis Current Visit: No Status: Acute Assessment and Plan: anti-embolic stockings - Time Spent with Patient Total time spent is greater than 50% in coordination of care (as documented) at patient's floor/unit and/or counseling patient: 30 minutes Plan of Care Discussed with: patient Internal Medicine: Result - Labs CBC & Chem 7: 03/09/19 00:34 03/09/19 00:34 Consult Discharge Plan - Plan Referrals: NONE,PCP [Primary Care Provider] - (2) Alcohol intoxication Qualifiers: Complication of substance-induced condition: uncomplicated Qualified Code(s): F10.920 - Alcohol use, unspecified with intoxication, uncomplicated (3) Depression Qualifiers: Depression Type: unspecified Qualified Code(s): F32.9 - Major depressive disorder, single episode, unspecified
[2019-03-11 04:54] LABS: Hematocrit 46.3 % (37.5-50.1); Hemoglobin 15.7 g/dL (12.9-16.9); Mean Corpuscular HGB Conc 33.9 g/dL (31.6-35.5); Mean Corpuscular Hemoglobin 32.2 pg (28.0-33.3); Mean Corpuscular Volume 95.1 fL (83.0-100.0); Mean Platelet Volume 10.2 fL (9.4-12.4); Platelet Count 215 K/mcL (140-400); Red Blood Count 4.87 M/mcL (4.19-5.50); White Blood Count 5.6 K/mcL (4.3-11.1)
[2019-03-11 05:07] LABS: BUN/Creatinine Ratio 21 (6-26); Blood Urea Nitrogen 17 mg/dL (6-20); Calcium 8.8 mg/dL (8.6-10.3); Carbon Dioxide 24 mEq/L (23-29); Chloride 104 mEq/L (98-107); Glucose 104 mg/dL (70-105); Osmolality,Calculated 286 (280-300); Potassium 3.9 mEq/L (3.5-5.1); Sodium 137 mEq/L (136-145); eGFR For African Americans > 60 (> 60); eGFR For Non-African Americans > 60 (> 60)
[2019-03-11] MEDS: Vitamin B Complex/Vit C/Vit E 1 EACH TABLET PO SCH (08:55)
[2019-03-11] MEDS: Folic Acid 1 MG TABLET PO SCH (08:55)
[2019-03-11] MEDS: Thiamine (B-1) 100 MG TABLET PO SCH (08:55)
[2019-03-11] MEDS ORDERED: Nicotine 14 MG PATCH.TD24 TD SCH (09:00)
--- NOTE | 2019-03-11 12:57 | Discharge Summary ---
- NOTES TO OUTPATIENT PROVIDER Notes to Outpatient Provider: Inpatient for EtOH intoxication and SI; risk for wdwl so kept inpatient on fixed dose librium taper for 3 days prior to transfer to inpatient psych. Date of Encounter: 03/11/19 Time of Encounter: 12:53 Hospital course: Dear Doctors, I recently had the opportunity to care for this patient during their recent hospital stay at [facility]. Yordan Chaves is a 43 M w hx depression, EtOH use disorder, who presented at the time of admission drunk and with suicidal ideation. Due to recent heavy drinking, patient placed inpatient for observation and management of possible EtOH withdrawal. In the hospital, he was placed on fixed dose librium taper and did not require any breakthrough/PRN doses of ativan during his 3 days. He was evaluated by Psych who agreed that transfer to 1A inpatient psych at time of discharge was appropriate. Dx: EtOH use disorder, depression with suicidal ideation, high risk for alcohol withdrawal Pertinent tests/consults: Psych consult Follow up: transfer to (inpatient psych) Tests pending: none Med changes: - new librium 50 bid today, 25 bid tomorrow to finish taper - new multivitamin daily Mental status: awake, fully oriented Code status: Full It has been my pleasure participating in this patient's care. Please contact me with any questions or concerns regarding their hospital stay. Sincerely, Aniket Locke MD - Discharge Medications Prescriptions: New Chlordiazepoxide [Librium] 50 mg PO BID 1 Days #1 capsule Chlordiazepoxide [Librium] 25 mg PO BID 1 Days #2 capsule Multivitamin [One Daily] 1 each PO DAILY #30 tablet Home Medications: Chlordiazepoxide [Librium] 25 mg PO BID 1 Days #2 capsule 03/11/19 [Rx] Chlordiazepoxide [Librium] 50 mg PO BID 1 Days #1 capsule 03/11/19 [Rx] Multivitamin [One Daily] 1 each PO DAILY #30 tablet 03/11/19 [Rx] Allergies/Adverse Reactions: Allergy/AdvReac Type Severity Reaction Status Date / Time Amoxicillin Allergy Rash Verified 03/09/19 03:40 Penicillins Allergy Rash Verified 03/09/19 03:40 Date of admission: 03/09/19 04:30 Primary care physician: PCP NONE Consults: 09/16/19 04:17 Consult to Psychiatry [CONS] Routine Consulting Provider: Psychiatry Siria Reason consult: Sitter/1:1 03/09/19 05:06 Consult to [facility] [CONS] Routine Reason for SW Consult: SI - Constitutional Vitals: Temp Pulse Resp BP Pulse Ox 97.7 F 68 15 142/89 94 03/11/19 11:26 03/11/19 11:26 03/11/19 11:26 03/11/19 11:26 03/11/19 11:26 Exam: General: NAD, good eye contact, well appearing Thoracic: Normal breath sounds b/l, no wheezing or crackles Cardio: Normal S1 and S2, regular rate and rhythm, no murmurs Abdomen: Soft, nontender Extremities: Warm, well perfused. DP pulses 2+ b/l. No edema. Skin: Intact. No rashes, bruises, or ulcers Neuro: Awake, fully oriented. Speech fluent - Patient Status Disposition: Transfer Psychiatric Hosp Condition: Good Functional capacity at discharge: independent ambulation Overall status at discharge: patient is back to baseline - Discharge Instructions Follow Up With: NONE,PCP [Primary Care Provider] - - Diet and Activity Activity: resume usual activities as tolerated Diet: advance to your usual diet
[2019-03-11 15:34] VITALS: BP 129/90
== END 2019-03-11 16:11 | disposition home or self-care (01) ==
LOC: 3ANU 00:13 → EMEROOARM 00:13 → SUATTDRO 04:30 → 3ANU 04:45
PROVIDERS: ADMIT Internal Medicine; ATTEND Internal Medicine

== ENCOUNTER 2019-03-11 16:22 | Inpatient (IN) ==
[2019-03-11] MEDS ORDERED: Haloperidol Lactate 5 MG/ML VIAL IM PRN (16:25)
[2019-03-11] MEDS ORDERED: *HR* LORazepam 2 MG/ML VIAL IM PRN (16:25)
[2019-03-11] MEDS ORDERED: *HR* LORazepam 1 MG TABLET PO PRN (16:25)
[2019-03-11] MEDS ORDERED: MOM Conc 10 ML UD.LIQ PO PRN (16:25)
[2019-03-11] MEDS ORDERED: Mag Hydrox/Al Hydrox/Simeth 30 ML UDC PO PRN (16:25)
[2019-03-11] MEDS: Nicotine 2 MG GUM BC PRN (17:15)
[2019-03-11] MEDS: Ibuprofen 400 MG TABLET PO PRN (19:57)
[2019-03-11] MEDS: traZODone 50 MG TABLET PO PRN (21:27)
[2019-03-12] MEDS: Vitamin B Complex/Vit C/Vit E 1 EACH TABLET PO SCH (08:29)
[2019-03-12] MEDS: Folic Acid 1 MG TABLET PO SCH (08:29)
[2019-03-12] MEDS: Thiamine (B-1) 100 MG TABLET PO SCH (08:29)
[2019-03-12] MEDS: Multivit/Ca/Min/Fe/FA 1 TAB TABLET PO SCH (08:29)
--- NOTE | 2019-03-12 10:52 | Psychiatry History & Physical ---
Date of Encounter: 03/12/19 Time of Encounter: 10:52 History of Present Illness Patient Stated Chief Complaint: SI Medicare Admission Attestation: For traditional Medicare patients the provided hospital inpatient services are reasonable and necessary and in the case of services not specified as inpatient-only under 42 CFR 419.22 (n), that they are appropriately provided as inpatient services in accordance 42 CFR 412.3. For [facility] the patient may reasonably be expected to be discharged or transferred to a hospital within 96 hours after admission to the [facility]. History of Present Illness: Mr. Chaves is a 43 year old male with a history of anxiety, depression, PTSD, and alcohol abuse who presented to the ED endorsing suicidal ideation. He endorsed having a plan to shoot himself, and though he does not own a gun, stated that he could easily obtain one. In the ED, patient was noted to have an elevated alcohol level, and reported drinking multiple beers on a daily basis. When asked how many, patient states "more than most people would be able to handle". He denies any use of illicit substances. Patient did endorse a history of alcohol withdrawal symptoms, and was subsequently admitted to the medical floor for management of that problem, with consult placed to psychiatry by primary team. Patient noted to have previous admission to a few years ago (April 2016), at which time he was also struggling with depression and SI. He reports that medications have been of limited use in the past; however, he notes that a prior physician, Dr. Joseph, had him on medication therapy that helped greatly, and reports that he was able to stay sober for several weeks. On review of [facility] documentation, it appears that patient was prescribed paxil 10mg and valium 10mg Q8H PRN by that provider. Patient was most recently seen in the residency clinic in July of this year, where he was seen by myself; at that time, he reported taking paxil 40mg and hydroxyzine 25mg Q6H PRN with good effect. He reports that he has not taken medication in several months, as he lost his medical insurance, though he has recently had his insurance problems addressed. He endorses anhedonia and difficulty motivating himself to leave his home. He denies overt homicidal ideation; however, he reported that when he gets mad, he wants to hurt someone, which is why he stays home and drinks, otherwise he is concerned that "something bad will happen", which also prompted him to come to the hospital. He states that he is no longer able to deal with these problems on his own and states that he wants help. He denies any visual or auditory hallucinations. While on the medical floor, patient was restarted on paroxetine 20mg, with some improvement in his mood. On evaluation today, he denies any SI and voices interest in inpatient rehab facility for alcohol abuse after hospital discharge. Past Med Surg Social Fam HX - Past Medical History Medical history: no medical history - Past Surgical History Surgical History: no surgical history - Social History Smoking Status: Current some day smoker Smokeless Tobacco Status: Yes Alcohol use: heavy, recent Drug use: none - Family History Mother Name: Bailee Age: 64 Living Status: Still Living Hx Family Cardiac Disorders: No Hx Family Respiratory Disorders: No Hx Family Cancer: No Hx Family GI Disorders: No Hx Family Genitourinary Disorders: No Hx Family Endocrine Disorder: No Hx Family Musculoskeletal Disorders: No Hx Family Neuromuscular Disorders: No Hx Family Neurologic Disorders: No Hx Family HEENT Disorders: No Hx Family Autoimmune Disorders: No Hx Family Reproductive Disorders: No Hx Family Psychosocial Disorders: No Hx Family Medical Disorders: No Medications & Allergies Chlordiazepoxide [Librium] 25 mg PO BID 1 Days #2 capsule 03/11/19 [Rx] Chlordiazepoxide [Librium] 50 mg PO BID 1 Days #1 capsule 03/11/19 [Rx] Multivitamin [One Daily] 1 each PO DAILY #30 tablet 03/11/19 [Rx] Allergy/AdvReac Type Severity Reaction Status Date / Time Amoxicillin Allergy Rash Verified 03/09/19 03:40 Penicillins Allergy Rash Verified 03/09/19 03:40 Review of Systems Constitutional: Denies: fever, chills, weakness, weight change Eyes: Denies: eye pain, vision change Ears, Nose, Throat: Denies: ear pain, throat pain, dental pain, hearing loss, congestion Cardiovascular: Denies: chest pain, palpitations, dyspnea on exertion Respiratory: Denies: cough, dyspnea, wheezes Gastrointestinal: Denies: abdominal pain, nausea, vomiting, diarrhea, constipation Genitourinary male: Denies: urgency, dysuria, frequency, genital lesions Musculoskeletal: Denies: joint swelling, joint pain Integumentary: Denies: rash, lesions, pruritus Neurological: Denies: headache, weakness, numbness, memory loss Psychiatric: Reports: depression, anxiety, abnormal sleep pattern, anhedonia. Denies: suicidal ideation, homicidal ideation, auditory hallucinations, visual hallucinations Endocrine: Denies: fatigue, heat or cold intolerance Hematologic/Lymphatic: Denies: easy bruising, lymphadenopathy Allergic/Immunologic: Denies: urticaria, itchy eyes Exam - HEENT Head exam IM: Present: atraumatic Eye exam IM: Present: EOMI, normal appearance, PERRL ENT exam IM: Present: normal exam - Neurological Neurological exam: Present: CN II-XII intact (grossly intact on observation) - Respiratory Respiratory exam IM: Absent: accessory muscle use, respiratory distress - GI/Abdominal GI/Abdominal exam IM: Present: normal bowel sounds, soft. Absent: tenderness - Extremities Extremities exam IM: Present: full ROM - Skin Skin exam IM: Present: dry, warm - Constitutional Vitals: Temp Pulse Resp BP Pulse Ox 97.6 F 68 18 132/92 99 03/12/19 09:00 03/12/19 09:00 03/12/19 09:00 03/12/19 09:00 03/12/19 09:00 General appearance: age & developmentally appropriate, well-groomed, well- nourished - Musculoskeletal Gait: normal Station: relaxed Strength & Tone: normal for patient - Psychiatric Patient Orientation: Yes Person, Yes Time, Yes Place Level of alertness: Alert Behavior: calm, cooperative Psychomotor activity: Normal Eye Contact: Maintains Eye Contact Mood Description: Depressed (improved from previous) Affect description: congruent with mood Speech Volume: Normal Speech pattern: normal rate, normal rhythm, normal tone, fluent, spontaneous Language & Vocabulary: consistent with education Thought Process: Linear, Goal Oriented Thought Content: No Suicidal ideation, No Homicidal ideation, No Overt delusions Perceptual Disturbances: No Auditory hallucinations, No Visual hallucinations Attention Span Ability: Capable of Focused Attention Memory Description: Grossly Intact Patient Reliability: Questionable Historian Fund of knowledge: Yes abstraction ability, Yes average, Yes aware of current events Intelligence Estimate: Average Judgment: Limited Insight: Partial Assessment and Plan (1) Major depressive disorder Current visit: Yes Status: Acute Plan: Admit inpatient for safety and stabilization, Close observation, Suicide Precautions per unit protocol, Encourage participation in unit milieu, Group Therapy, Monitor sleep, Monitor appetite Additional Plan: Patient endorses a history of depression, which has worsened over the last several months. He initially voiced active suicidal ideation, stating that if he didn't, "something bad was going to happen", with endorsement of a plan to end his life. Paxil was restarted by primary team while admitted to the medical floor at lower dose of 20mg. On evaluation today, patient voices improvement in his mood, and denies active SI/HI. - Increase paroxetine from 20g to 40mg daily. Risks, benefits, side effects, alternatives discussed w/pt: Yes Patient agreeable to treatment: Yes Qualifiers: Major depression recurrence: recurrent Active/Remission status: currently active Major depression episode severity: severe Psychotic features: without psychotic features Qualified Code(s): F33.2 - Major depressive disorder, recurrent severe without psychotic features (2) PTSD (post-traumatic stress disorder) Current visit: Yes Status: Acute Plan: Close observation, Suicide Precautions per unit protocol, Encourage participation in unit milieu, Group Therapy, Monitor sleep, Monitor appetite, Family/Supportive other meeting Additional Plan: History of PTSD; will start prazosin for PTSD-associated nightmares. Risks, benefits, side effects, alternatives discussed w/pt: Yes Patient agreeable to treatment: Yes (3) Alcohol use disorder Current visit: Yes Status: Acute Plan: Close observation, Suicide Precautions per unit protocol, Encourage participation in unit milieu, Group Therapy, Monitor sleep, Monitor appetite Additional Plan: Alcohol withdrawal was managed on medical floor with a fixed-dose librium taper, and was provided with prescriptions to complete taper at time of discharge from the medical floor. At this time, patient is interested in an inpatient alcohol rehab facility; will plan to facilitate placement if possible. - Attending Attestation I examined this patient and my medical decision-making was reviewed with the Resident Physician. I agree with the documented findings, disposition and treatment plan as described except to the extent set forth below. Client is denying any further SI today but mood is significantly depressed. Lives alone. Drinks 30 plus beers daily. Has experienced alcohol withdrawal in the past but denies any history of DTs, seizures, or hallucinations. Wants AOD treatment. Open to the idea of inpatient AOD treatment at this time. Has had success with Paxil and Vistaril in the past so will titrate these medications for now. Also complaining of nightmares. Has a significant trauma history so discussed Prazosin as a potentially helpful medication and client would like to try it.
[2019-03-12] MEDS: Nicotine 2 MG GUM BC PRN ×3 (12:47→20:41)
[2019-03-12] MEDS: hydrOXYzine pamoate 25 MG CAPSULE PO PRN (17:54)
[2019-03-12] MEDS: hydrOXYzine pamoate 25 MG CAPSULE PO SCH (20:41)
[2019-03-12] MEDS: traZODone 50 MG TABLET PO PRN (20:41)
[2019-03-13] MEDS: Folic Acid 1 MG TABLET PO SCH (09:03)
[2019-03-13] MEDS: hydrOXYzine pamoate 25 MG CAPSULE PO SCH ×2 (09:03→21:00)
[2019-03-13] MEDS: Ibuprofen 400 MG TABLET PO PRN ×2 (09:04→21:06)
[2019-03-13] MEDS: Thiamine (B-1) 100 MG TABLET PO SCH (09:04)
[2019-03-13] MEDS: Vitamin B Complex/Vit C/Vit E 1 EACH TABLET PO SCH (09:04)
[2019-03-13] MEDS: Multivit/Ca/Min/Fe/FA 1 TAB TABLET PO SCH (09:04)
[2019-03-13] MEDS: Nicotine 2 MG GUM BC PRN ×3 (09:26→21:06)
--- NOTE | 2019-03-13 09:35 | Psychiatry Progress Note ---
Date of Encounter: 03/13/19 Time of Encounter: 09:32 Subjective Interval history: Client reports he is feeling better today. "Mellow." Denying any further SI, intent, or plan. Still willing to go to an inpatient rehab. Accepted by the [facility]. They will have a bed for him on Saturday. Will continue Librium taper over the weekend so client is off this medication by Saturday. Seems to be eating and sleeping well. States he could have eaten four breakfast trays this morning. Has been getting a lot of calories from alcohol so it is good that he is back to eating regular food. Not attending any groups. Encouraged to go but client has been resistant so far. Review of Systems Constitutional: Denies: fever, chills, weakness, weight change Eyes: Denies: eye pain, vision change Ears, Nose, Throat: Denies: ear pain, throat pain, dental pain, hearing loss, congestion Cardiovascular: Denies: chest pain, palpitations, dyspnea on exertion Respiratory: Denies: cough, dyspnea, wheezes Gastrointestinal: Denies: abdominal pain, nausea, vomiting, diarrhea, constipation Musculoskeletal: Denies: joint swelling, joint pain Neurological: Denies: headache, weakness, numbness, memory loss Psychiatric: Reports: depression, anxiety, abnormal sleep pattern, anhedonia. Denies: suicidal ideation, homicidal ideation, auditory hallucinations, visual hallucinations Results - Vital Signs Vital Signs: Temp Pulse Resp BP Pulse Ox 98.6 F 85 16 106/69 97 03/13/19 09:00 03/13/19 09:00 03/13/19 09:00 03/13/19 09:00 03/13/19 09:00 Assessment and Plan (1) Major depressive disorder Current visit: Yes Status: Acute Risks, benefits, side effects, alternatives discussed w/pt: Yes Patient agreeable to treatment: Yes Qualifiers: Major depression recurrence: recurrent Active/Remission status: currently active Major depression episode severity: severe Psychotic features: without psychotic features Qualified Code(s): F33.2 - Major depressive disorder, recurrent severe without psychotic features (2) PTSD (post-traumatic stress disorder) Current visit: Yes Status: Acute Risks, benefits, side effects, alternatives discussed w/pt: Yes Patient agreeable to treatment: Yes (3) Alcohol use disorder Current visit: Yes Status: Acute Consult Discharge Plan - Plan Referrals: NONE,PCP [Primary Care Provider] - Psychiatry Exam - Constitutional Vitals: Temp Pulse Resp BP Pulse Ox 98.6 F 85 16 106/69 97 03/13/19 09:00 03/13/19 09:00 03/13/19 09:00 03/13/19 09:00 03/13/19 09:00 General appearance: age & developmentally appropriate, well-groomed, well- nourished - Musculoskeletal Gait: slow Station: relaxed Strength & Tone: normal for patient - Psychiatric Patient Orientation: Yes Person, Yes Time, Yes Place Level of alertness: Alert Behavior: calm, cooperative Psychomotor activity: Slowed Eye Contact: Maintains Eye Contact Mood Description: Depressed Affect description: congruent with mood Speech Volume: Normal Speech pattern: normal rate, normal rhythm, normal tone, fluent, spontaneous Language & Vocabulary: consistent with education Thought Process: Linear, Goal Oriented Thought Content: No Suicidal ideation, No Homicidal ideation, No Overt delusions Perceptual Disturbances: No Auditory hallucinations, No Visual hallucinations Attention Span Ability: Capable of Focused Attention Memory Description: Grossly Intact Patient Reliability: Reliable Historian Fund of knowledge: Yes abstraction ability, Yes aware of current events Intelligence Estimate: Average Judgment: Limited Insight: Partial
[2019-03-13] MEDS: traZODone 50 MG TABLET PO PRN (21:00)
[2019-03-14] MEDS: Vitamin B Complex/Vit C/Vit E 1 EACH TABLET PO SCH (09:26)
[2019-03-14] MEDS: Thiamine (B-1) 100 MG TABLET PO SCH (09:26)
[2019-03-14] MEDS: Folic Acid 1 MG TABLET PO SCH (09:27)
[2019-03-14] MEDS: hydrOXYzine pamoate 25 MG CAPSULE PO SCH ×2 (09:27→20:21)
[2019-03-14] MEDS: Multivit/Ca/Min/Fe/FA 1 TAB TABLET PO SCH (09:27)
[2019-03-14] MEDS: Nicotine 2 MG GUM BC PRN ×5 (09:43→20:21)
--- NOTE | 2019-03-14 09:53 | Psychiatry Progress Note ---
Date of Encounter: 03/14/19 Time of Encounter: 09:49 Subjective Interval history: Client is doing better. Mood has improved. Denying any further SI, intent, or plan. Anxious about rehab. Asking a lot of questions about what he will need to bring and what the rules are. Nervous about being able to keep his home since he won't be earning an income in rehab. However, at this point, he remains committed to going to the [facility] and the plan is for them to take him on Saturday. Will continue to taper Librium so he is off this medication by Saturday. Prazosin seems to be helping and client reports good sleep last night. Eating well. Reports he is always hungry now. Was getting a lot of empty calories from alcohol that he is no longer getting so not surprised that he is feeling a lot of hunger. Doesn't really attend groups but he is pleasant and cooperative. Review of Systems Constitutional: Denies: fever, chills, weakness, weight change Eyes: Denies: eye pain, vision change Ears, Nose, Throat: Denies: ear pain, throat pain, dental pain, hearing loss, congestion Cardiovascular: Denies: chest pain, palpitations, dyspnea on exertion Respiratory: Denies: cough, dyspnea, wheezes Gastrointestinal: Denies: abdominal pain, nausea, vomiting, diarrhea, constipation Musculoskeletal: Denies: joint swelling, joint pain Neurological: Denies: headache, weakness, numbness, memory loss Psychiatric: Reports: depression, anxiety, abnormal sleep pattern, anhedonia. Denies: suicidal ideation, homicidal ideation, auditory hallucinations, visual hallucinations Results - Vital Signs Vital Signs: Temp Pulse Resp BP Pulse Ox 98.4 F 86 18 118/74 96 03/13/19 20:48 03/13/19 20:48 03/13/19 20:48 03/13/19 20:48 03/13/19 20:48 Assessment and Plan (1) Major depressive disorder Current visit: Yes Status: Acute Plan: Continue hospitalization, Close observation, Suicide Precautions per unit protocol, Encourage participation in unit milieu, Group Therapy, Monitor sleep, Monitor appetite Risks, benefits, side effects, alternatives discussed w/pt: Yes Patient agreeable to treatment: Yes Qualifiers: Major depression recurrence: recurrent Active/Remission status: currently active Major depression episode severity: severe Psychotic features: without psychotic features Qualified Code(s): F33.2 - Major depressive disorder, recurrent severe without psychotic features (2) PTSD (post-traumatic stress disorder) Current visit: Yes Status: Acute Plan: Continue hospitalization, Close observation, Suicide Precautions per unit protocol, Encourage participation in unit milieu, Group Therapy, Monitor sleep, Monitor appetite Risks, benefits, side effects, alternatives discussed w/pt: Yes Patient agreeable to treatment: Yes (3) Alcohol use disorder Current visit: Yes Status: Acute Plan: Continue hospitalization, Close observation, Suicide Precautions per unit protocol, Encourage participation in unit milieu, Group Therapy, Monitor sleep, Monitor appetite Risks, benefits, side effects, alternatives discussed w/pt: Yes Patient agreeable to treatment: Yes Consult Discharge Plan - Plan Referrals: NONE,PCP [Primary Care Provider] - Psychiatry Exam - Constitutional Vitals: Temp Pulse Resp BP Pulse Ox 98.4 F 86 18 118/74 96 03/13/19 20:48 03/13/19 20:48 03/13/19 20:48 03/13/19 20:48 03/13/19 20:48 General appearance: age & developmentally appropriate - Musculoskeletal Gait: normal Station: relaxed Strength & Tone: normal for patient - Psychiatric Patient Orientation: Yes Person, Yes Time, Yes Place Level of alertness: Alert Behavior: calm, cooperative Psychomotor activity: Increased Eye Contact: Maintains Eye Contact Mood Description: Anxious Affect description: congruent with mood Speech Volume: Normal Speech pattern: normal rate, normal rhythm, normal tone, fluent, spontaneous Language & Vocabulary: consistent with education Thought Process: Linear, Goal Oriented Thought Content: No Suicidal ideation, No Homicidal ideation, No Overt delusions Perceptual Disturbances: No Auditory hallucinations, No Visual hallucinations Attention Span Ability: Capable of Focused Attention Memory Description: Grossly Intact Patient Reliability: Reliable Historian Fund of knowledge: Yes abstraction ability, Yes aware of current events Intelligence Estimate: Average Judgment: Fair Insight: Partial
[2019-03-14] MEDS: hydrOXYzine pamoate 25 MG CAPSULE PO PRN (15:52)
[2019-03-14] MEDS: traZODone 50 MG TABLET PO PRN (20:21)
[2019-03-15] MEDS: Folic Acid 1 MG TABLET PO SCH (08:49)
[2019-03-15] MEDS: Vitamin B Complex/Vit C/Vit E 1 EACH TABLET PO SCH (08:51)
[2019-03-15] MEDS: hydrOXYzine pamoate 25 MG CAPSULE PO SCH ×2 (08:51→20:29)
[2019-03-15] MEDS: Thiamine (B-1) 100 MG TABLET PO SCH (08:51)
[2019-03-15] MEDS: Multivit/Ca/Min/Fe/FA 1 TAB TABLET PO SCH (08:51)
[2019-03-15] MEDS: Nicotine 2 MG GUM BC PRN ×4 (08:52→18:45)
--- NOTE | 2019-03-15 09:40 | Psychiatry Progress Note ---
Date of Encounter: 03/15/19 Time of Encounter: 09:35 Subjective Interval history: Client is doing well. Has good insight. Told staff his mother is upset he is here but client's impression is "she should be happy I'm here getting help." Appreciative toward staff for helping him. Nervous about going to the [facility] but continues to see it as a step in the right direction. Wants outpatient care beyond the [facility]. Has seen a provider via telepsych before and states he really needs a live person. Wants to have someone he can connect with and build a rapport with. At this point he seems committed to getting better. Even started attending groups here which he was very reluctant to do in the beginning. Staff report he participated well. Has been looking out for a female peer on the unit. She has been struggling with multiple issues and he has been keeping a helpful eye on her and alerting staff when she needs assistance. Eating and sleeping well. Pleasant and cooperative. Plan remains to discharge to the [facility] tomorrow. Review of Systems Constitutional: Denies: fever, chills, weakness, weight change Eyes: Denies: eye pain, vision change Ears, Nose, Throat: Denies: ear pain, throat pain, dental pain, hearing loss, congestion Cardiovascular: Denies: chest pain, palpitations, dyspnea on exertion Respiratory: Denies: cough, dyspnea, wheezes Gastrointestinal: Denies: abdominal pain, nausea, vomiting, diarrhea, constipation Musculoskeletal: Denies: joint swelling, joint pain Neurological: Denies: headache, weakness, numbness, memory loss Psychiatric: Reports: depression, anxiety, abnormal sleep pattern, anhedonia. Denies: suicidal ideation, homicidal ideation, auditory hallucinations, visual hallucinations Results - Vital Signs Vital Signs: Temp Pulse Resp BP Pulse Ox 98.4 F 81 18 130/67 97 03/14/19 20:04 03/14/19 20:04 03/14/19 20:04 03/14/19 20:04 03/14/19 20:04 Assessment and Plan (1) Major depressive disorder Current visit: Yes Status: Acute Plan: Continue hospitalization, Close observation, Suicide Precautions per unit protocol, Encourage participation in unit milieu, Group Therapy, Monitor sleep, Monitor appetite Risks, benefits, side effects, alternatives discussed w/pt: Yes Patient agreeable to treatment: Yes Qualifiers: Major depression recurrence: recurrent Active/Remission status: currently active Major depression episode severity: severe Psychotic features: without psychotic features Qualified Code(s): F33.2 - Major depressive disorder, recurrent severe without psychotic features (2) PTSD (post-traumatic stress disorder) Current visit: Yes Status: Acute Plan: Continue hospitalization, Close observation, Suicide Precautions per unit protocol, Encourage participation in unit milieu, Group Therapy, Monitor sleep, Monitor appetite Risks, benefits, side effects, alternatives discussed w/pt: Yes Patient agreeable to treatment: Yes (3) Alcohol use disorder Current visit: Yes Status: Acute Plan: Continue hospitalization, Close observation, Suicide Precautions per unit protocol, Encourage participation in unit milieu, Group Therapy, Monitor sleep, Monitor appetite Risks, benefits, side effects, alternatives discussed w/pt: Yes Patient agreeable to treatment: Yes Consult Discharge Plan - Plan Referrals: NONE,PCP [Primary Care Provider] - Psychiatry Exam - Constitutional Vitals: Temp Pulse Resp BP Pulse Ox 98.4 F 81 18 130/67 97 03/14/19 20:04 03/14/19 20:04 03/14/19 20:04 03/14/19 20:04 03/14/19 20:04 General appearance: age & developmentally appropriate, well-groomed, well-nouris hed - Musculoskeletal Gait: slow Station: relaxed Strength & Tone: normal for patient - Psychiatric Patient Orientation: Yes Person, Yes Time, Yes Place Level of alertness: Alert Behavior: calm, cooperative Psychomotor activity: Normal Eye Contact: Maintains Eye Contact Mood Description: Euthymic/stable Affect description: blunted Speech Volume: Normal Speech pattern: normal rate, normal rhythm, normal tone, fluent, spontaneous Language & Vocabulary: consistent with education Thought Process: Linear, Goal Oriented Thought Content: No Suicidal ideation, No Homicidal ideation, No Overt delusions Perceptual Disturbances: No Auditory hallucinations, No Visual hallucinations Attention Span Ability: Capable of Focused Attention Memory Description: Grossly Intact Patient Reliability: Reliable Historian Fund of knowledge: Yes abstraction ability, Yes aware of current events Intelligence Estimate: Average Judgment: Fair Insight: Partial
[2019-03-15] MEDS: hydrOXYzine pamoate 25 MG CAPSULE PO PRN (14:12)
[2019-03-15] MEDS: traZODone 50 MG TABLET PO PRN (20:29)
[2019-03-16] MEDS: Nicotine 2 MG GUM BC PRN ×5 (06:27→20:47)
[2019-03-16] MEDS: Multivit/Ca/Min/Fe/FA 1 TAB TABLET PO SCH (08:45)
[2019-03-16] MEDS: hydrOXYzine pamoate 25 MG CAPSULE PO SCH ×2 (08:45→20:45)
[2019-03-16] MEDS: Vitamin B Complex/Vit C/Vit E 1 EACH TABLET PO SCH (08:46)
[2019-03-16] MEDS: Thiamine (B-1) 100 MG TABLET PO SCH (08:47)
[2019-03-16] MEDS: Folic Acid 1 MG TABLET PO SCH (08:47)
[2019-03-16] MEDS: hydrOXYzine pamoate 25 MG CAPSULE PO PRN (14:09)
[2019-03-16] MEDS: Ibuprofen 400 MG TABLET PO PRN (14:09)
--- NOTE | 2019-03-16 15:53 | Psychiatry Progress Note ---
Date of Encounter: 03/16/19 Time of Encounter: 15:40 Subjective Interval history: Patient tells me today "I am alright". He denies any suicidal/homicidal ideation. He states that the medications help with his alcohol withdrawal and he denies any side effects from his Paxil. His mood is much more stable. His states his sleep is good, he eating is fine. He talks about his childhood trauma in his problems with sleep and how the medications have helped with his nightmares. He wants to discharged to an alcohol treatment center and continue to see a therapist dealing with his depression and trauma. He is concerned about losing his housing as he has not paid is lot rent for the month. I spoke to him about talking to the social work supervisor, as well as others at his inpatient rehab facility. They would make sure he had assistance in getting a check delivered that he would not lose his housing. He felt reassured by that. He is aware that he was not transferred today to his inpatient alcohol facility and that they should have room for him tomorrow, at which time he will be discharged to that facility. Review of Systems Psychiatric: Reports: depression, anxiety, abnormal sleep pattern, anhedonia. Denies: suicidal ideation, homicidal ideation, auditory hallucinations, visual hallucinations Results - Vital Signs Vital Signs: Temp Pulse Resp BP Pulse Ox 98.7 F 87 18 134/82 96 03/16/19 09:00 03/16/19 09:00 03/16/19 09:00 03/16/19 09:00 03/16/19 09:00 Assessment and Plan (1) Alcohol use disorder Current visit: Yes Status: Acute Plan: Other (Transfer to inpatient alcohol rehab facility at discharge) Risks, benefits, side effects, alternatives discussed w/pt: Yes Patient agreeable to treatment: Yes (2) PTSD (post-traumatic stress disorder) Current visit: Yes Status: Acute Plan: Continue hospitalization, Encourage participation in unit milieu Risks, benefits, side effects, alternatives discussed w/pt: Yes Patient agreeable to treatment: Yes (3) Major depressive disorder Current visit: Yes Status: Acute Plan: Continue hospitalization, Close observation, Suicide Precautions per unit protocol, Encourage participation in unit milieu, Group Therapy, Monitor sleep, Monitor appetite Risks, benefits, side effects, alternatives discussed w/pt: Yes Patient agreeable to treatment: Yes Qualifiers: Major depression recurrence: recurrent Active/Remission status: currently active Major depression episode severity: severe Psychotic features: without psychotic features Qualified Code(s): F33.2 - Major depressive disorder, recurrent severe without psychotic features Consult Discharge Plan - Plan Referrals: [facility] [Other] (You have indicated that you are interested in residential substance abuse treatment and have been referred to [facility] for further treatment. [facility] is a 36-bed residential drug treatment facility for men. You will be receiving both group and individual counseling services specific to the treatment of substance abuse. Along with substance abuse treatment, you will be receiving mental health and case management ser vices by Center staff. Medically assisted treatment via Naltrexone (Vivitrol) injections are available to interested individuals. He will be expected to participate in Recovery related activities including 12 step meetings, exercise and programs here towards a healthy lifestyle. A major focus at this program is the early development and adoption of positive behaviors to replace negative and maladaptive behaviors.) Janak Walker [Resident] - 03/17/19 3:00 pm (You have an appointment scheduled with this provider on Sunday, March 17, 2019 at 3:00 PM. Please keep all of your healthcare providers informed of any changes in your medications, treatments or medical conditions. Please contact the office at the number above at least 24 hours in advance if you are unable to keep this appointment. ) Psychiatry Exam - Constitutional Vitals: Temp Pulse Resp BP Pulse Ox 98.7 F 87 18 134/82 96 03/16/19 09:00 03/16/19 09:00 03/16/19 09:00 03/16/19 09:00 03/16/19 09:00 General appearance: age & developmentally appropriate, well-groomed - Musculoskeletal Gait: normal Station: slouched Strength & Tone: normal for patient - Psychiatric Patient Orientation: Yes Person, Yes Time, Yes Place, Yes Circumstance Level of alertness: Alert Behavior: anxious Psychomotor activity: Normal Eye Contact: Maintains Eye Contact Mood Description: Anxious Affect description: congruent with mood Speech Volume: Normal Speech pattern: normal rate, normal rhythm, normal tone, fluent Language & Vocabulary: consistent with education Thought Process: Intact, Goal Oriented Thought Content: Yes Intact Attention Span Ability: Capable of Focused Attention Memory Description: Grossly Intact Patient Reliability: Reliable Historian Fund of knowledge: Yes average Intelligence Estimate: Average Judgment: Fair Insight: Partial
[2019-03-16] MEDS: traZODone 50 MG TABLET PO PRN (20:45)
[2019-03-17] MEDS: Nicotine 2 MG GUM BC PRN (05:46)
[2019-03-17] MEDS: Folic Acid 1 MG TABLET PO SCH (08:03)
[2019-03-17] MEDS: hydrOXYzine pamoate 25 MG CAPSULE PO SCH (08:03)
[2019-03-17] MEDS: Ibuprofen 400 MG TABLET PO PRN (08:03)
[2019-03-17] MEDS: Multivit/Ca/Min/Fe/FA 1 TAB TABLET PO SCH (08:03)
[2019-03-17] MEDS: Thiamine (B-1) 100 MG TABLET PO SCH (08:04)
[2019-03-17] MEDS: Vitamin B Complex/Vit C/Vit E 1 EACH TABLET PO SCH (08:04)
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
[2019-03-17 09:23] VITALS: BP 116/81
== END 2019-03-17 09:40 | disposition home or self-care (01) | DRG 751 ==
LOC: 1ANU 16:22 → SUATTDRO 16:22
PROVIDERS: ADMIT Psychiatry & Neurology Psychiatry; ATTEND Psychiatry & Neurology Psychiatry

== ENCOUNTER 2019-09-02 15:14 | Observation (INO) ==
[2019-09-02 16:03] LABS: Basophils # 0.1 K/mcL (0.0-0.2); Basophils % 0.6 %; Eosinophils # 0.2 K/mcL (0.0-0.6); Eosinophils % 1.9 %; Hematocrit 48.5 % (37.5-50.1); Hemoglobin 16.3 g/dL (12.9-16.9); Immature Granulocytes % 0.5 % (0-4); Lymphocytes # 1.8 K/mcL (0.6-4.6); Lymphocytes % 21.2 %; Mean Corpuscular HGB Conc 33.6 g/dL (31.6-35.5); Mean Corpuscular Hemoglobin 31.8 pg (28.0-33.3); Mean Corpuscular Volume 94.7 fL (83.0-100.0); Mean Platelet Volume 9.6 fL (9.4-12.4); Monocytes # 0.4 K/mcL (0.0-1.3); Monocytes % 4.6 %; Neutrophils # 6.1 K/mcL (1.6-8.9); Platelet Count 249 K/mcL (140-400); Red Blood Count 5.12 M/mcL (4.19-5.50); Red Cell Distribution Width 13.2 % (11.5-14.5); Segmented Neutrophils % 71.2 %; White Blood Count 8.5 K/mcL (4.3-11.1)
[2019-09-02 16:09] LABS: Bilirubin,Urine Negative (Negative); Blood,Urine Negative (Negative); Clarity,Urine Clear (Clear); Color,Urine Yellow (Yellow); Glucose,Urine (UA) Normal (Normal); Ketones,Urine Negative (Negative); Leukocyte Esterase,Urine Negative (Negative); Nitrite,Urine Negative (Negative); Protein,Urine Negative (Neg-Trace); Specific Gravity,Urine 1.009 (1.010-1.025); Urobilinogen,Urine Normal (Normal)
[2019-09-02 16:15] LABS: Acetaminophen 11 mcg/mL (10-20); BUN/Creatinine Ratio 9 (6-26); Blood Urea Nitrogen 7 mg/dL (6-20); Calcium 9.4 mg/dL (8.6-10.3); Carbon Dioxide 25 mEq/L (23-29); Chloride 103 mEq/L (98-107); Ethanol 299 mg/dL (Less than 10); Glucose 99 mg/dL (70-105); Osmolality,Calculated 284 (280-300); Salicylate < 2.5 mg/dL (15.0-30.0); Sodium 138 mEq/L (136-145); eGFR For African Americans > 60 (> 60); eGFR For Non-African Americans > 60 (> 60)
[2019-09-02] MEDS ORDERED: Folic Acid 1 MG in 0.9 % Sodium Chloride 50 ML IVPB ONE (16:27)
[2019-09-02] MEDS ORDERED: Thiamine (B-1) 100 MG in 0.9 % Sodium Chloride 50 ML IVPB STA (16:27)
[2019-09-02 16:29] LABS: Amphetamine Screen,Urine Negative ng/mL (Cutoff=1000); Barbiturate Screen,Urine Negative ng/mL (Cutoff=200); Benzodiazepines Screen,Urine Negative ng/mL (Cutoff=200); Cannabinoid Screen,Urine Negative ng/mL (Cutoff = 50); Cocaine Screen,Urine Negative ng/mL (Cutoff= 300); Opiate Screen,Urine Negative ng/mL (Cutoff=300); Phencyclidine Screen,Urine Negative ng/mL (Cutoff=25)
[2019-09-02] MEDS ORDERED: Naloxone 0.4 MG/ML INJ IVP PRN (17:18)
[2019-09-02] MEDS ORDERED: *HR* LORazepam 2 MG/ML VIAL IVP PRN ×3 (17:19)
[2019-09-02] MEDS ORDERED: hydrOXYzine pamoate 25 MG CAPSULE PO PRN (17:52)
[2019-09-02] MEDS ORDERED: traZODone 50 MG TABLET PO PRN (17:52)
[2019-09-02] MEDS: Ondansetron 4 MG/2 ML VIAL IVP PRN (19:08)
[2019-09-02] MEDS: *HR* Heparin 5,000 UNIT/ML VIAL SQ SCH (22:30)
[2019-09-03 01:30] LABS: Basophils % 0.6 %; Immature Granulocytes % 0.2 % (0-4)
[2019-09-03 01:32] LABS: Eosinophils # 0.3 K/mcL (0.0-0.6); Eosinophils % 6.3 %; Hematocrit 41.8 % (37.5-50.1); Hemoglobin 14.2 g/dL (12.9-16.9); Immature Platelets 4.3 % (1.1-6.1); Lymphocytes % 47.7 %; Mean Corpuscular Hemoglobin 32.1 pg (28.0-33.3); Mean Corpuscular Volume 94.6 fL (83.0-100.0); Mean Platelet Volume 10.3 fL (9.4-12.4); Monocytes # 0.3 K/mcL (0.0-1.3); Neutrophils # 1.8 K/mcL (1.6-8.9); Platelet Count 209 K/mcL (140-400); Red Blood Count 4.42 M/mcL (4.19-5.50); Red Cell Distribution Width 13.2 % (11.5-14.5); Segmented Neutrophils % 38.2 %; White Blood Count 4.7 K/mcL (4.3-11.1)
[2019-09-03 01:36] LABS: BUN/Creatinine Ratio 9 (6-26); Blood Urea Nitrogen 9 mg/dL (6-20); Calcium 8.5 mg/dL (8.6-10.3); Carbon Dioxide 21 mEq/L (23-29); Chloride 107 mEq/L (98-107); Glucose 89 mg/dL (70-105); Osmolality,Calculated 288 (280-300); Potassium 3.5 mEq/L (3.5-5.1); Sodium 140 mEq/L (136-145); eGFR For African Americans > 60 (> 60); eGFR For Non-African Americans > 60 (> 60)
[2019-09-03 01:56] LABS: Lymphocytes # 2.2 K/mcL (0.6-4.6)
[2019-09-03] MEDS: *HR* Heparin 5,000 UNIT/ML VIAL SQ SCH ×2 (06:44→14:22)
[2019-09-03] MEDS: Ondansetron 4 MG/2 ML VIAL IVP PRN (08:11)
[2019-09-03] MEDS ORDERED: Thiamine (B-1) 100 MG TABLET PO SCH (09:00)
[2019-09-03] MEDS ORDERED: PARoxetine 20 MG TABLET PO SCH (09:00)
[2019-09-03] MEDS ORDERED: Multivit/Ca/Min/Fe/FA 1 TAB TABLET PO SCH (09:00)
[2019-09-03] MEDS ORDERED: Folic Acid 1 MG TABLET PO SCH (09:00)
[2019-09-03] MEDS ORDERED: Nicotine 21 MG PATCH.TD24 TD SCH (14:30)
[2019-09-03 15:20] VITALS: BP 130/90
== END 2019-09-03 18:06 ==
LOC: 3BNU 15:14 → EMEROOARM 15:14 → SUATTDRO 16:51 → 3BNU 17:20
PROVIDERS: ADMIT Internal Medicine; ATTEND Family Medicine

== ENCOUNTER 2020-10-06 15:14 | Inpatient (IN) ==
[2020-10-06 15:57] LABS: Bilirubin,Urine Negative (Negative); Blood,Urine Negative (Negative); Clarity,Urine Clear (Clear); Color,Urine Light-Yellow (Yellow); Glucose,Urine (UA) Normal (Normal); Ketones,Urine Negative (Negative); Leukocyte Esterase,Urine Negative (Negative); Nitrite,Urine Negative (Negative); Protein,Urine Negative (Neg-Trace); Specific Gravity,Urine 1.019 (1.010-1.025); Urobilinogen,Urine Normal (Normal)
[2020-10-06 15:57] LABS: Basophils % 0.5 %; Eosinophils # 0.2 K/mcL (0.0-0.6); Hematocrit 45.5 % (37.5-50.1); Hemoglobin 15.2 g/dL (12.9-16.9); Immature Granulocytes % 0.4 % (0-4); Lymphocytes # 2.1 K/mcL (0.6-4.6); Lymphocytes % 26.4 %; Mean Corpuscular HGB Conc 33.4 g/dL (31.6-35.5); Mean Corpuscular Hemoglobin 33.1 pg (28.0-33.3); Mean Corpuscular Volume 99.1 fL (83.0-100.0); Mean Platelet Volume 10.5 fL (9.4-12.4); Monocytes # 0.5 K/mcL (0.0-1.3); Monocytes % 6.5 %; Platelet Count 226 K/mcL (140-400); Red Blood Count 4.59 M/mcL (4.19-5.50); Red Cell Distribution Width 12.7 % (11.5-14.5); Segmented Neutrophils % 64.2 %; White Blood Count 7.8 K/mcL (4.3-11.1)
[2020-10-06 16:08] LABS: Amphetamine Screen,Urine Negative ng/mL (Cutoff=1000); Barbiturate Screen,Urine Negative ng/mL (Cutoff=200); Benzodiazepines Screen,Urine Negative ng/mL (Cutoff=200); Cannabinoid Screen,Urine Negative ng/mL (Cutoff = 50); Cocaine Screen,Urine Negative ng/mL (Cutoff= 300); Opiate Screen,Urine Negative ng/mL (Cutoff=300); Phencyclidine Screen,Urine Negative ng/mL (Cutoff=25)
[2020-10-06 16:09] LABS: Prothrombin Time 12.1 Seconds (9.4-12.1)
[2020-10-06 16:19] LABS: Acetaminophen < 10 mcg/mL (10-20); Alanine Aminotransferase 22 Units/L (7-52); Albumin 4.6 g/dL (3.5-5.7); Albumin/Globulin Ratio 1.5 (1.1-2.2); Alkaline Phosphatase 70 Units/L (34-104); Aspartate Amino Transferase 22 Units/L (13-39); BUN/Creatinine Ratio 11 (6-26); Bilirubin,Direct 0.1 mg/dL (0.0-0.2); Bilirubin,Indirect 0.4 mg/dL (0.0-1.0); Bilirubin,Total 0.5 mg/dL (0.3-1.0); Blood Urea Nitrogen 9 mg/dL (6-20); Calcium 9.2 mg/dL (8.6-10.3); Carbon Dioxide 27 mEq/L (23-29); Chloride 103 mEq/L (98-107); Ethanol < 10 mg/dL (Less than 10); Globulin 3.1 g/dL (2.4-3.5); Glucose 94 mg/dL (70-105); Osmolality,Calculated 284 (280-300); Potassium 3.6 mEq/L (3.5-5.1); Salicylate < 2.5 mg/dL (15.0-30.0); Sodium 138 mEq/L (136-145); Total Protein 7.7 g/dL (6.4-8.9); eGFR For African Americans > 60 (> 60); eGFR For Non-African Americans > 60 (> 60)
[2020-10-06 16:31] LABS: Thyroid Stimulating Hormone 2.734 mcIU/mL (0.340-5.600)
[2020-10-06] MEDS ORDERED: MOM Conc 10 ML UD.LIQ PO PRN (18:29)
[2020-10-06] MEDS ORDERED: *HR* LORazepam 2 MG/ML VIAL IM PRN (18:29)
[2020-10-06] MEDS ORDERED: Acetaminophen 325 MG TABLET PO PRN (18:29)
[2020-10-06] MEDS ORDERED: *HR* LORazepam 1 MG TABLET PO PRN (18:29)
[2020-10-06] MEDS ORDERED: Mag Hydrox/Al Hydrox/Simeth 30 ML UDC PO PRN (18:29)
[2020-10-06] MEDS ORDERED: traZODone 50 MG TABLET PO PRN (18:29)
[2020-10-06] MEDS ORDERED: haloperidoL 5 MG TABLET PO PRN (18:29)
[2020-10-06] MEDS ORDERED: Haloperidol Lactate 5 MG/ML VIAL IM PRN (18:29)
[2020-10-06] MEDS: hydrOXYzine pamoate 25 MG CAPSULE PO PRN (21:31)
[2020-10-06] MEDS: Nicotine 2 MG GUM BC PRN (21:31)
[2020-10-07] MEDS: Nicotine 2 MG GUM BC PRN ×2 (09:52→16:13)
[2020-10-07] MEDS: hydrOXYzine pamoate 25 MG CAPSULE PO PRN ×2 (10:38→21:50)
[2020-10-07] MEDS: QUEtiapine Fumarate 25 MG TABLET PO SCH ×2 (11:12→21:50)
[2020-10-08] MEDS: Nicotine 2 MG GUM BC PRN ×4 (06:13→21:59)
[2020-10-08] MEDS: QUEtiapine Fumarate 25 MG TABLET PO SCH ×2 (08:09→21:53)
[2020-10-08] MEDS ORDERED: QUEtiapine Fumarate 25 MG TABLET PO PRN (10:08)
[2020-10-08] MEDS: hydrOXYzine pamoate 25 MG CAPSULE PO PRN (13:51)
[2020-10-08] MEDS: Melatonin 3 MG TABLET PO SCH (21:52)
[2020-10-09] MEDS: Nicotine 2 MG GUM BC PRN ×5 (06:03→20:42)
[2020-10-09] MEDS: QUEtiapine Fumarate 25 MG TABLET PO SCH ×2 (08:09→21:52)
[2020-10-09] MEDS: hydrOXYzine pamoate 25 MG CAPSULE PO PRN ×3 (10:51→21:51)
[2020-10-09] MEDS: Melatonin 3 MG TABLET PO SCH (21:51)
[2020-10-10] MEDS: Nicotine 2 MG GUM BC PRN ×5 (06:59→20:34)
[2020-10-10] MEDS: QUEtiapine Fumarate 25 MG TABLET PO SCH ×2 (08:58→21:32)
[2020-10-10] MEDS: hydrOXYzine pamoate 25 MG CAPSULE PO PRN ×3 (13:13→21:36)
[2020-10-10] MEDS: Melatonin 3 MG TABLET PO SCH (21:31)
[2020-10-11] MEDS: Nicotine 2 MG GUM BC PRN ×3 (06:25→13:02)
[2020-10-11] MEDS: QUEtiapine Fumarate 25 MG TABLET PO SCH (08:44)
[2020-10-11 09:10] VITALS: BP 108/70
[2020-10-11] MEDS: hydrOXYzine pamoate 25 MG CAPSULE PO PRN (13:02)
== END 2020-10-11 13:15 | disposition other institution (70) | DRG 751 ==
LOC: EMEROOARM 15:14 → 1ANU 18:10
PROVIDERS: ADMIT Psychiatry & Neurology Psychiatry; ATTEND Psychiatry & Neurology Psychiatry

== ENCOUNTER 2022-01-26 12:43 | Observation (INO) ==
[2022-01-26 13:23] LABS: Basophils # 0.1 K/mcL (0.0-0.2); Basophils % 1.4 %; Eosinophils # 0.6 K/mcL (0.0-0.6); Eosinophils % 9.9 %; Hematocrit 46.7 % (37.5-50.1); Hemoglobin 15.8 g/dL (12.9-16.9); Immature Granulocytes % 0.3 % (0-4); Lymphocytes # 2.8 K/mcL (0.6-4.6); Lymphocytes % 44.4 %; Mean Corpuscular HGB Conc 33.8 g/dL (31.6-35.5); Mean Corpuscular Hemoglobin 33.4 pg (28.0-33.3); Mean Corpuscular Volume 98.7 fL (83.0-100.0); Mean Platelet Volume 9.8 fL (9.4-12.4); Monocytes # 0.4 K/mcL (0.0-1.3); Monocytes % 5.6 %; Neutrophils # 2.5 K/mcL (1.6-8.9); Platelet Count 286 K/mcL (140-400); Red Blood Count 4.73 M/mcL (4.19-5.50); Red Cell Distribution Width 12.9 % (11.5-14.5); Segmented Neutrophils % 38.4 %; White Blood Count 6.4 K/mcL (4.3-11.1)
[2022-01-26 13:44] LABS: Estimated Average Glucose 108 mg/dl; Hemoglobin A1C 5.4 %
[2022-01-26 13:47] LABS: Acetaminophen < 10 mcg/mL (10-20); BUN/Creatinine Ratio 6 (6-26); Blood Urea Nitrogen 6 mg/dL (6-20); Calcium 8.7 mg/dL (8.6-10.3); Carbon Dioxide 29 mEq/L (23-29); Chloride 109 mEq/L (98-107); Chol/HDL Ratio 2.2 (0-4.9); Cholesterol 157 mg/dL (< 200); Ethanol 315 mg/dL (Less than 10); Glucose 91 mg/dL (70-105); HDL Cholesterol 72 mg/dL (40-59); LDL Cholesterol,Calculated 49 mg/dL (< 100); Osmolality,Calculated 297 (280-300); Potassium 3.5 mEq/L (3.5-5.1); Salicylate < 2.5 mg/dL (15.0-30.0); Sodium 145 mEq/L (136-145); Triglycerides 181 mg/dL (< 150); eGFR For African Americans > 60 (> 60); eGFR For Non-African Americans > 60 (> 60)
[2022-01-26 14:42] LABS: Bilirubin,Urine Negative (Negative); Blood,Urine Negative (Negative); Clarity,Urine Clear (Clear); Color,Urine Yellow (Yellow); Glucose,Urine (UA) Normal (Normal); Ketones,Urine Negative (Negative); Leukocyte Esterase,Urine Negative (Negative); Nitrite,Urine Negative (Negative); Protein,Urine Trace mg/dL (Neg-Trace); Specific Gravity,Urine 1.018 (1.010-1.025); Urobilinogen,Urine Normal (Normal)
[2022-01-26 15:00] LABS: Amphetamine Screen,Urine Negative ng/mL (Cutoff=1000); Barbiturate Screen,Urine Negative ng/mL (Cutoff=200); Benzodiazepines Screen,Urine Positive ng/mL (Cutoff=200); Cannabinoid Screen,Urine Negative ng/mL (Cutoff = 50); Cocaine Screen,Urine Negative ng/mL (Cutoff= 300); Opiate Screen,Urine Negative ng/mL (Cutoff=300); Phencyclidine Screen,Urine Negative ng/mL (Cutoff=25)
[2022-01-27] MEDS ORDERED: Naloxone 0.4 MG/ML INJ IVP PRN (04:11)
[2022-01-27] MEDS ORDERED: Melatonin 3 MG TABLET PO PRN (04:11)
[2022-01-27] MEDS ORDERED: Acetaminophen 325 MG TABLET PO PRN (04:11)
[2022-01-27] MEDS ORDERED: Ondansetron 4 MG/2 ML VIAL IVP PRN (04:11)
[2022-01-27] MEDS ORDERED: *HR* LORazepam 1 MG TABLET PO PRN ×3 (04:13)
[2022-01-27] MEDS ORDERED: Thiamine (B-1) 100 MG, Folic Acid 1 MG, MVI, adult with vitamin K 10 ML in 0.9 % Sodi... IVPB SCH (05:00)
[2022-01-27] MEDS: Nicotine 21 MG PATCH.TD24 TD SCH ×2 (07:10→08:57)
[2022-01-27] MEDS ORDERED: Ringers Solution, Lactated 1,000 ML IVC ONE (14:02)
[2022-01-27] MEDS: Thiamine (B-1) 100 MG TABLET PO SCH (14:32)
[2022-01-27] MEDS: Multivit/Ca/Min/Fe/FA 1 TAB TABLET PO SCH (14:32)
[2022-01-27] MEDS: Folic Acid 1 MG TABLET PO SCH (14:32)
[2022-01-28] MEDS: Folic Acid 1 MG TABLET PO SCH (07:58)
[2022-01-28] MEDS: Thiamine (B-1) 100 MG TABLET PO SCH (07:58)
[2022-01-28] MEDS: Nicotine 21 MG PATCH.TD24 TD SCH (07:58)
[2022-01-28] MEDS: Multivit/Ca/Min/Fe/FA 1 TAB TABLET PO SCH (07:58)
[2022-01-28 08:00] VITALS: BP 133/76; PULSE 45; TEMP 97.7; O2SAT 96
[2022-01-28 13:47] LABS: Influenza A PCR Negative (Negative); Influenza B PCR Negative (Negative); Resp. Syncytial Virus PCR Negative (Negative)
[2022-01-28 13:57] LABS: SARS-CoV-2 by PCR (In House) Negative (Negative)
== END 2022-01-28 14:34 ==
LOC: EMEROOARM 12:43 → 3BNU 12:43 → SUATTDRO 01-27 02:15 → 3BNU 01-27 03:25
PROVIDERS: ADMIT Internal Medicine; ATTEND Internal Medicine